=== PATIENT | male | born 1975 | race Caucasian/White ===

== ENCOUNTER 2017-03-04 17:57 | Inpatient (IN) | payer SELFPAY ==
--- NOTE | 2017-03-04 18:12 | CPEKG ---
Heart Rate: 60 RR Interval: 1000 QRSD Interval: 118 QT Interval: 500 QTC Interval: 500 P [place]: 12 QRS [place]: -29 T Wave [place]: -4 EKG Severity - ABNORMAL ECG - EKG Impression: COMPLETE AV BLOCK, A-RATE 131 EKG Impression: LEFT VENTRICULAR HYPERTROPHY EKG Impression: BORDERLINE T ABNORMALITIES, INFERIOR LEADS EKG Impression: BORDERLINE PROLONGED QT INTERVAL Electronically Signed By: Davon Lofton 04-Mar-2017 18:20:08
[2017-03-04] MEDS ORDERED: NS 500 ML IV ONE (18:15)
--- NOTE | 2017-03-04 18:19 | EDPHY ---
H & P Stated Complaint: c/o SOB -lower back/ kidney pain- states has not taken meds in 2 days Source: Patient Exam Limitations: No limitations - Personal History Current Tetanus Diphtheria and Acellular Pertussis (TDAP): Yes - Medical/Surgical History Hx Asthma: No Hx Chronic Respiratory Disease: No Hx Diabetes: No Hx Cardiac Disease: No Hx Renal Disease: No Hx Cirrhosis: No Other PMH: depression/nose - Family History Significant Family History: No pertinent family hx - Social History Smoking Status: Never smoked Alcohol Use: Sober Drug Use: None Time Seen by Provider: 03/04/17 18:08 HPI/ROS: CHIEF COMPLAINT: Low back pain, cough HISTORY OF PRESENT ILLNESS: The patient is a 41-year-old man who presents to the emergency department hypoxic and pale complaining of low back pain. He states that he has had a cough for the last 3 days. He has not had a fever. His cough is not productive. He states that he has had a cardiac workup in the past that was negative. He denies other past medical history other than anxiety. REVIEW OF SYSTEMS: Constitutional: denies: chills, fever, recent illness, recent injury EENTM: denies: blurred vision, double vision, nose congestion Respiratory: See HPI Cardiac: denies: chest pain, irregular heart rate, lightheadedness, palpitations Gastrointestinal/Abdominal: denies: abdominal pain, diarrhea, nausea, vomiting, blood streaked stools Genitourinary: denies: dysuria, frequency, hematuria, pain Musculoskeletal: denies: joint pain, muscle pain Skin: denies: lesions, rash, jaundice, bruising Neurological: denies: headache, numbness, paresthesia, tingling, dizziness, weakness Hematologic/Lymphatic: denies: blood clots, easy bleeding, easy bruising Immunologic/allergic: denies: HIV/AIDS, transplant EXAM: GENERAL: Well-appearing, well-nourished and in no acute distress. HEAD: Atraumatic, normocephalic. EYES: Pupils equal round and reactive to light, extraocular movements intact, sclera anicteric, conjunctiva are normal. ENT: TMs normal, nares patent, oropharynx clear without exudates. Moist mucous membranes. NECK: Normal range of motion, supple without lymphadenopathy or JVD. LUNGS: Right lower lobe rhonchi HEART: Bradycardic but regular ABDOMEN: Soft, nontender, normoactive bowel sounds. No guarding, no rebound. No masses appreciated. BACK: No CVA tenderness, no spinal tenderness, step-offs or deformities EXTREMITIES: Normal range of motion, no pitting or edema. No clubbing or cyanosis. NEUROLOGICAL: Cranial nerves II through XII grossly intact. Normal speech, normal gait. 5/5 strength, normal movement in all extremities, normal sensation PSYCH: Normal mood, normal affect. SKIN: Warm, dry, normal turgor, no visible rashes or lesions. (Davon Lofton) Constitutional: Initial Vital Signs Heart Rate 63 03/04/17 18:00 Respiratory Rate 18 03/04/17 18:00 Blood Pressure 131/73 H 03/04/17 18:00 O2 Sat (%) 92 03/04/17 18:00 O2 Delivery Mode Nasal Cannula O2 (L/minute) 2 Allergies/Adverse Reactions: No Known Allergies Allergy (Unverified 03/04/17 18:08) Home Medications: Medication Instructions Recorded ALPRAZolam [Xanax 1 MG (*)] 1 mg PO TID 03/04/17 ARIPiprazole [Aripiprazole] 5 mg PO HS 03/04/17 Amoxicillin/Clavulanate Pot 875 mg PO BID 03/04/17 [Augmentin 875 MG TAB (*)] Amphet Asp and D/Amphet [Adderall 10 mg PO DAILY 03/04/17 10 MG (*)] Dextroamphetamine/Amphetamine 60 mg PO DAILY 03/04/17 [Adderall 30 mg Tablet] oxyCODONE HCL [Oxycontin] 10 mg PO BID 03/04/17 oxyCODONE IR [Oxycodone Ir (*)] 30 mg PO Q4H PRN 03/04/17 traMADol [Ultram 50 mg (*)] 50 - 100 mg PO Q4 PRN 03/04/17 Medical Decision Making - Diagnostics EKG Interpretation: An EKG obtained and was read and documented in trace view. Please see trace view for full reading and report. Complete AV heart block, ventricular rate of 60 (Davon Lofton) ED Course/Re-evaluation: The patient's EKG shows complete heart block. Will place transcutaneous pacer pads on him and contact Cardiology. He is saturating 85% on room air. 93% on 4 L nasal cannula. 620 p.m. I discussed the case with Dr. Loya who is on-call for Cardiology. He recommends admission to the hospitalist service. Lab work pending, chest x- ray pending 6:29 p.m. I discussed the case with Dr. Alin Aranda who will admit and will discuss with Dr. Loya the necessity of Cardiology consult tonight. 6:34 p.m. I discussed the case with Javier Hdez who will accept the patient to the ER if in inpatient bed is not available by the time the ambulance arrives. 6:45 p.m. the patient's is here. We discussed his condition. The patient is feeling better and his back pain is resolved with oxygen. (Davon Lofton) I assumed care of this patient when he arrived in our emergency department. The patient has remained stable throughout my care. He has been in third- degree AV block. He has had an accelerated ventricular rhythm in the upper 50s to low 60s with frequent sinus beats as well. He was put in trauma room 2 which is warm. When I evaluated him he was mildly diaphoretic. I discussed the results of his chest x-ray with the admitting hospitalist Dr. Alin Aranda. The chest x-ray is concerning for CHF as well as pneumonia. Blood cultures were drawn. He was started on IV ceftriaxone and azithromycin for community-acquired pneumonia in the emergency department. He was seen by Cardiology, both Dr. Smooth Loya and Dr. Villegas. They want to observe the patient in the ICU overnight. At this time the decision to place a pacemaker will be discussed further in the morning. The patient's remaining emergency department course under my care has been uneventful. He has remained stable throughout my involvement. He was admitted to the ICU at 9:15 p.m.. ( Yeimi Sanchez) Differential Diagnosis: Partial list of the Differential diagnosis considered include but were not limited to; heart block, pneumonia, dissection and although unlikely based on the history and physical exam, I also considered sepsis, pneumothorax. (Davon Lofton) Critical Care Time: Critical care time spent by me, Dr. Lofton exclusive with this patient was 35 minutes, exclusive of the PA time exclusive of procedures. The organ system that was at risk was cardiovascular and I gave IV medication, pacer pad placement, consultation and admission and transfer to prevent worsening of the patient's condition (Davon Lofton) - Data Points Laboratory Results: Laboratory Results 03/04/17 18:27 03/04/17 18:15 Medications Given: Alprazolam (Xanax) 1 mg PO TID [facility] Stop: 08/31/17 21:59 Last Admin: 03/05/17 15:19 Dose: 1 mg Amphetamine/Dextroamphetamine (Adderall) 10 mg PO DAILY ALYSA Stop: 09/01/17 08:59 Last Admin: 03/05/17 09:06 Dose: Not Given Amphetamine/Dextroamphetamine (Adderall) 60 mg PO DAILY [facility] Stop: 09/01/17 08:59 Last Admin: 03/05/17 09:14 Dose: Not Given Enoxaparin Sodium (Lovenox) 80 mg SC BID [facility] Stop: 09/01/17 13:29 Last Admin: 03/05/17 13:54 Dose: 80 mg Dextrose/Sodium Chloride (D5w Ns) 1,000 mls @ 150 mls/hr IV CONT [facility] Stop: 08/31/17 20:59 Last Admin: 03/05/17 13:36 Dose: 1,000 mls Ketorolac Tromethamine (Toradol) 15 mg IVP Q6HRS [facility] Stop: 03/10/17 00:00 Last Admin: 03/05/17 17:08 Dose: Not Given Lorazepam (Ativan Injection) 1 - 2 mg IVP Q4HRS PRN PRN Reason: Anxiety, Unable to Take PO Stop: 09/01/17 16:42 Last Admin: 03/05/17 16:35 Dose: 2 mg Morphine Sulfate (Morphine) 1 - 2 mg IVP Q1HR PRN PRN Reason: Pain, Severe Unable to Take PO Stop: 03/15/17 13:15 Last Admin: 03/05/17 15:26 Dose: 2 mg Oxycodone HCl (Oxycontin) 10 mg PO BID [facility] Stop: 03/14/17 20:59 Last Admin: 03/05/17 09:15 Dose: Not Given Oxycodone HCl (Oxycodone Ir) 30 mg PO Q4H PRN PRN Reason: Pain, Severe Stop: 03/14/17 20:46 Last Admin: 03/05/17 12:22 Dose: 30 mg Polyethylene Glycol (Miralax) 17 gm PO DAILY ALYSA Stop: 08/31/17 20:59 Last Admin: 03/05/17 09:13 Dose: 17 gm Discontinued Medications Acetaminophen (Tylenol) 1,000 mg PO EDNOW ONE Stop: 03/04/17 22:00 Last Admin: 03/04/17 22:32 Dose: 1,000 mg Aripiprazole (Abilify) 5 mg PO HS ALYSA Stop: 08/31/17 20:59 Last Admin: 03/04/17 23:48 Dose: Not Given Sodium Chloride (Ns) 500 mls @ 0 mls/hr IV EDNOW ONE; Wide Open PRN Reason: Protocol Stop: 03/04/17 18:16 Last Admin: 03/04/17 18:27 Dose: 500 mls Azithromycin 500 mg/ Dextrose 255 mls @ 255 mls/hr IV DAILY ALYSA PRN Reason: Protocol Stop: 04/03/17 20:59 Last Admin: 03/05/17 01:21 Dose: Not Given Ceftriaxone Sodium/Dextrose (Rocephin 1 Gm (Premix)) 50 mls @ 100 mls/hr IV DAILY ALYSA PRN Reason: Protocol Stop: 04/03/17 20:59 Last Admin: 03/05/17 11:12 Dose: 50 mls Azithromycin 500 mg/ Dextrose 255 mls @ 255 mls/hr IV EDNOW ONE PRN Reason: Protocol Stop: 03/04/17 23:29 Last Admin: 03/04/17 22:30 Dose: 255 mls Ketorolac Tromethamine (Toradol) 30 mg IVP ONCE ONE Stop: 03/05/17 16:42 Last Admin: 03/05/17 16:54 Dose: 30 mg Lidocaine (Uroject Lidocaine 2% Jelly) 0 ml UR ONCE ONE Stop: 03/05/17 15:16 Last Admin: 03/05/17 15:20 Dose: 20 ml Magnesium Citrate (Magnesium Citrate) 300 ml PO ONCE ONE Stop: 03/05/17 09:29 Last Admin: 03/05/17 11:18 Dose: Not Given Potassium Chloride (Klor-Con) 10 - 40 meq PO ONCE ONE PRN Reason: Protocol Stop: 03/05/17 08:51 Last Admin: 03/05/17 09:12 Dose: 20 meq Departure - Departure Disposition: [facility] Acute Clinical Impression: Complete heart block by electrocardiogram, Pulmonary edema cardiac cause, Pneumonia Condition: Critical
[2017-03-04 18:31] LABS: % IMMATURE GRANULYOCYTES 0.5 % (0.0-1.1); ABSOLUTE IMMATURE GRANULOCYTES 0.06 10^3/uL (0.00-0.10); ADD DIFF? NO; ADD MORPH? NO; ADD SCAN? NO; ATYPICAL LYMPHOCYTE FLAG 0 (0-99); FRAGMENT RBC FLAG 0 (0-99); HEMOGLOBIN 13.2 g/dL (13.7-17.5); LEFT SHIFT FLG 10 (0-99); LIPEMIA HEMOLYSIS FLAG 90 (0-99); MEAN CELL HEMOGLOBIN CONCENTR. 34.7 g/dL (32.4-36.7); MEAN PLATELET VOLUME 9.8 fL (8.7-11.7); PLATELET CLUMPS FLAG 0 (0-99); PLATELET COUNT 207 10^3/uL (150-400); RED CELL DISTRIBUTION WIDTH 12.2 % (11.5-15.2)
[2017-03-04 18:38] LABS: ANION GAP 17 mEq/L (8-16); CALCIUM 8.5 mg/dL (8.5-10.4); CARBON DIOXIDE 27 mEq/l (22-31); CHLORIDE 94 mEq/L (97-110); CREATININE 1.3 mg/dL (0.7-1.3); GLOMERULAR FILTRATION RATE > 60; GLUCOSE 147 mg/dL (70-100); SODIUM 138 mEq/L (134-144)
[2017-03-04 18:46] LABS: INR 1.35 (0.83-1.16); PROTIME(PATIENT) 16.5 SEC (12.0-15.0)
[2017-03-04 18:47] LABS: APTT 35.8 SEC (23.0-38.0)
[2017-03-04 18:57] LABS: TROPONIN I 0.012 ng/mL (0.000-0.034)
[2017-03-04] MEDS ORDERED: ONDANSETRON DISINTEGRATING 4 MG TAB PO PRN (20:44)
[2017-03-04] MEDS ORDERED: ONDANSETRON 4 MG/2 ML VIAL IVP PRN (20:44)
[2017-03-04] MEDS ORDERED: traMADol 50 MG TAB PO PRN (20:47)
[2017-03-04] MEDS ORDERED: ARIPiprazole 5 MG TAB PO SCH (21:00)
[2017-03-04] MEDS ORDERED: AZITHROMYCIN IV 500 MG in D5W 250 ML IV SCH (21:00)
[2017-03-04] MEDS ORDERED: ACETAMINOPHEN 500 MG TAB ONE (21:10)
--- NOTE | 2017-03-04 21:23 | GHP ---
[f rep st] HISTORY AND PHYSICAL DATE OF ADMISSION: 03/04/2017 HISTORY OF PRESENT ILLNESS: The patient is a 41-year-old gentleman with a history of chronic back pa in, anxiety and chronic narcotic use. He presents to Urgent Care with low back pain today. He notes he has had fever and chills and shortness of breath. He has a cough. It is not productive of anyth ing. He has not had myalgias. He did get a flu shot this year. He has no family history of pacemak er. He has not passed out. He has not had lower extremity edema or orthopnea. REVIEW OF SYSTEMS: Complete 10-point review of systems conducted and negative except as noted in the HPI. PAST MEDICAL HISTORY: 1. Low back pain. 2. Continuous narcotic use. 3. Anxiety. ALLERGIES: No known drug allergies. HOME MEDICATIONS: Amoxicillin, alprazolam, Adderall, OxyContin, oxycodone, tramadol. SOCIAL HISTORY: No tobacco, no alcohol. Lives in [place]. 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 He has 1 child. FAMILY HISTORY: As in the HPI. PHYSICAL EXAMINATION: PRESENTING VITALS: Temp 36.1, blood pressure 147/79, pulse 61, breathing 18 t imes a minute, 91% on room air. GENERAL: Diaphoretic, looks uncomfortable. Otherwise no acute distress. HEENT: Sclerae anicteric. Oropharynx clear. Mucous membranes moist. NECK: Supple. No lymphadenopathy or JVD. LUNGS: Show crackles about mcc up the right lung fi eld with crackles in the left base. He has good air movement. No wheeze. HEART: S1, S2. Bradycar dic without murmur. ABDOMEN: Soft, nontender, nondistended. LOWER EXTREMITIES: No edema. Calves nontender. SKIN: Without rash. NEUROLOGIC: Exam is nonfocal. LABORATORY DATA: Sodium 138, potassium 4, chloride 94, bicarb 17, BUN 20, creatinine 1.3. There is no baseline. Glucose is 147, troponin is 0.012. Venous lactate is 1.5. INR is 1.35. D-dimer is el evated at 8.2, white count is 11.5 with a left shift. Hematocrit is 38. Platelets are 207,000. [facility] x-ray, interpreted by me, shows right lower lobe pneumonia with possibly some atelectasis versus i nfiltrate at the left base. EKG interpreted by me shows complete heart block with a ventricular rate of 60 with normal axis and intervals. This is a wavy baseline but really no ST or T-wave changes. Atrial rate is 131. I have discussed the case with Dr. Cullen Loya who has seen the patient in the emergency department as well as Dr. Davon Lofton. ASSESSMENT/PLAN: This is a 41-year-old gentleman who presents with community-acquired pneumonia as w ell as complete heart block with accelerated rate. 1. Complete heart block with accelerated rate. The patient is hemodynamically stable. He is alert with a good blood pressure and urine output and a normal creatinine. This is a bit of an unusual sit uation, although I have seen this before. I think it is reasonable to hold off on pacer, particularl y in light of his pneumonia as I will discuss below. Blood cultures have been drawn. 2. Community-acquired pneumonia. The patient's pneumonia was treated with ceftriaxone and azithromy quiana. Blood cultures have been drawn. Certainly these need to be negative before a pacemaker is plac ed. 3. Arrhythmia. This is critical care related, then it may resolve. Otherwise, he may need pacer in the coming time. He is seemingly stable as above. 4. Disposition. Step-down unit. 5. Prophylaxis. Pharmacologic prophylaxis is indicated given age and risk factors. However, given the need for possible invasive procedure, we will provide SCDs right now. 6. Continuous narcotic use. We will continue his narcotics as prescribed. 7. Constipation with bright red blood per rectum. It sounds like hemorrhoidal bleeding. We will fo llow his hematocrit and put him on twice daily MiraLAX. DISPOSITION: ICU. /[id number]/MODL
[2017-03-04 21:44] LABS: AMORPHOUS PRESENT /hpf (NONE-1+); COLOR AMBER; LEUKOCYTE ESTERASE,URINE NEGATIVE (NEGATIVE); MUCUS 2+ /lpf (NONE-1+); NITRITE,URINE NEGATIVE (NEGATIVE)
[2017-03-04] MEDS ORDERED: CEFTRIAXONE 1 GM/DEXTROSE/50 ML BAG IV ONE (21:51)
[2017-03-04] MEDS ORDERED: ACETAMINOPHEN 500 MG TAB PO ONE (21:59)
--- NOTE | 2017-03-04 22:08 | GCON ---
[f rep st] CONSULTATION HISTORY OF PRESENT ILLNESS: This is a 41-year-old man who came into the hospital because of abdomina l pain. He has had abdominal pain and lower abdominal pain on both sides and some hip pain, pain in his flank s on both sides, chills and fever for 3 days. He has felt worse and worse. He has lost his appetite . His says that he has lost weight, but he says he has not lost any weight. He has been consti pated, and he is having some bright red blood per rectum for the last 3 days. He is not bleeding exc ept when he is trying to move his bowels and he has significant constipation. He has never had these symptoms before. It hurts when he is peeing and he has copper color urine minda t smells very badly. That has been going on for 2 days. He has no history of renal stones. He has no vomiting whatsoever. He has no history of GI pathology, such as GI bleeding, ulcer disease , GERD, diverticular disease, diarrheal illnesses, irritable bowel, inflammatory bowel diseases. He has not had a bleeding diathesis where he has a history of easy bruising or bleeding. He has not had any hematemesis. No hemoptysis. He has no orthopnea, PND, dyspnea on exertion. He has no pleuritic chest pain. He has no chest tigh tness. Has no hot swollen joints or major rashes. No photophobia, stiff neck, sore throat. No dysphagia or hoarseness. No trauma to the head, neck, or chest. He takes his usual medications, and he has a longstanding sleep disorder, has to take a lot of Xanax. He is off Ambien, but he has had 20 years of trouble with that and works with a doctor for that. Intermittently in the past, he might have some heartburn but that has not been an issue right now. T he patient, of note, has not had lightheadedness, dizziness, near syncope, trouble with vision, troub le with hearing, or any cranial neuropathies. CARDIAC RISK FACTORS: Negative for hypertension, diabetes, hyperlipidemia, hyperuricemia, myocardial infarction, known coronary disease, smoking history, or family history of premature coronary artery disease. ALLERGIES: None. MEDICATIONS: Listed in the record. SURGICAL HISTORY: Also listed in the record. REVIEW OF SYSTEMS: A 12-point review of systems negative for anything except as noted above and in t he record. FAMILY HISTORY: He has a 59-year-old dad who had a myocardial infarction. No one in the family has had early coronary disease. No one has a history of unexplained sudden at a young age. SOCIAL HISTORY: He lives with his , who is healthy. They have 1 child together. He has 3 child michele in total. His work is going very well. 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 He exercises by weight training. He does not smoke. He does not drink significant amounts of alcohol and does not use other drugs. PHYSICAL EXAMINATION: VITAL SIGNS: His blood pressure is 135/70, his heart rate is 60. HEENT: Pup ils equal and reactive. Mucous membranes of the mouth moist. NECK: Supple. CARDIOVASCULAR: S1, S 2. Soft systolic murmur in the left sternal border. No diastolic murmur. No S3, S4. No rubs. PUL MONARY: Rhonchi. No rales, wheezing, or dullness. ABDOMEN: Soft, nontender, without masses. CVA: No tenderness. EXTREMITIES: No edema, inflammation, or ulceration. NEUROLOGIC: Cranial nerves 2 -12 grossly normal. Motor and sensory intact. LAB: White count is 11.47, hematocrit is 38, platelet count is 207. He has 13 monos, 3 eosinophils. Absolute neutrophil 7.79, absolute lymphocytes 2.05, absolute monos 1.50. INR was 1.35. D-dimer 6 .19. Sodium 138, potassium 4.0, chloride 94, CO2 27, anion gap 17, BUN 20, creatinine 1.3, glucose 1 47. Troponin 0.012. EKG shows complete heart block. He has a ventricular response rate that is 58 to 64. He has a junct ional rhythm. Chest x-ray shows a question of community-acquired pneumonia. ASSESSMENT AND PLAN: 1. Complete heart block. 2. Current illness. 3. Abnormal chest x-ray. 4. Dysuria and foul-smelling urine. 5. Gastrointestinal bleeding from the lower GI tract. We will watch him closely. It looks like he has a community-acquired pneumonia and we are going to t reat him for that, and we will treat with something that would also cover a bladder infection if he h as that. Cultures will be done before anything happens. I think he will do very well. He has a good junctional ventricular response to his complete heart bl ock, and I believe that might go away as he is better in the morning. We will have him checked by e EP service. He is going to be admitted to the ICU. He has patches on in case he needs pacing in the night. We can always put in temporary pacing if it is necessary, but there is no indic ation he needs that right now. There is nothing to suggest an acute coronary syndrome, congestive heart failure, etc. We will get a n echocardiographic study in the morning, and we will watch him very closely with you. Thank you very much for asking us to see him. I have talked to the hospitalist and the emergency [facility] staff about him. All the patient's family's questions have been answered, as well as his, and I sp ent over an hour and half with him. /[id number]/MODL
[2017-03-04] MEDS ORDERED: AZITHROMYCIN IV 500 MG in D5W 250 ML IV ONE (22:30)
[2017-03-04] MEDS: D5W NS 1,000 ML IV SCH (22:30)
[2017-03-04] MEDS: ALPRAZolam 1 MG TAB PO SCH (23:48)
[2017-03-04] MEDS: POLYETHYLENE GLYCOL 3350 17 GM PKT PO SCH (23:48)
--- NOTE | 2017-03-05 00:20 | HOSPPROG ---
Hospitalist Progress Note Assessment/Plan: Hospitalist Night Float Note Paged by RN reporting patient with increasing confusion and very diaphoretic. Patient admitted with complete heart block and PNA. Seen by Cardiology upon admission. recs to continue treatment for pna. prn pacer pads but at this time no emergent need for transvenous pacer. Arrived to bedside. patient somnolent and not able to answer questions falls asleep. he denied chest pain or shortness of breath to RN prior to this. Mother at bedside and updated. chart briefly reviewed. tele with prolonging QTc. d/c azithromycin. d/c abilify. Patient with significant weight loss for last several months but has acutely not been feeling well x 4 days. Unknown if he has taken any of his chronic opiates or psychiatric medications during this time. Patient was offerred an oxycodone but spit it out this PM before falling asleep. Plan: monitor closely on tele. d/c QT prolonging agents monitor electrolytes and replace. cardiology following. external pacer if needed at this time patient stable and asymptomatic HR 40s- 50s. IVF Objective: Vital Signs Temp Pulse Resp BP Pulse Ox 36.7 C 51 L 16 119/76 95 03/04/17 22:22 03/04/17 22:22 03/04/17 22:22 03/04/17 22:22 03/04/17 22:22 03/03/17 03/04/17 03/05/17 05:59 05:59 05:59 Intake Total 500 Balance 500 PT 16.5 SEC (12.0-15.0) H 03/04/17 18:15 INR 1.35 (0.83-1.16) H 03/04/17 18:15 ICD10 Worksheet Patient Problems: Problems Problem Status Onset Complete heart block by electrocardiogram Acute Pneumonia Acute Pulmonary edema cardiac cause Acute
[2017-03-05] MEDS: oxyCODONE IR 15 MG TAB PO PRN ×4 (01:22→20:39)
--- NOTE | 2017-03-05 04:09 | GCON ---
[f rep st] CONSULTATION The patient is here with right feeling tired. /[id number]/MODL
[2017-03-05 05:13] LABS: % IMMATURE GRANULYOCYTES 0.8 % (0.0-1.1); ABSOLUTE IMMATURE GRANULOCYTES 0.06 10^3/uL (0.00-0.10); ADD DIFF? NO; ADD MORPH? NO; ADD SCAN? NO; ATYPICAL LYMPHOCYTE FLAG 0 (0-99); FRAGMENT RBC FLAG 0 (0-99); HEMATOCRIT 30.8 % (40.0-51.0); HEMOGLOBIN 10.8 g/dL (13.7-17.5); LEFT SHIFT FLG 0 (0-99); LIPEMIA HEMOLYSIS FLAG 90 (0-99); MEAN CELL HEMOGLOBIN 34.3 pg (27.9-34.1); MEAN CELL HEMOGLOBIN CONCENTR. 35.1 g/dL (32.4-36.7); MEAN CELL VOLUME 97.8 fL (81.5-99.8); MEAN PLATELET VOLUME 10.5 fL (8.7-11.7); PLATELET CLUMPS FLAG 10 (0-99); PLATELET COUNT 156 10^3/uL (150-400); RED BLOOD CELL COUNT 3.15 10^6/uL (4.40-6.38); RED CELL DISTRIBUTION WIDTH 12.4 % (11.5-15.2)
[2017-03-05 05:25] LABS: INR 1.4 (0.83-1.16); PROTIME(PATIENT) 17.3 SEC (12.0-15.0)
[2017-03-05 05:34] LABS: CARBON DIOXIDE 31 mEq/l (22-31); CHLORIDE 100 mEq/L (97-110); GLOMERULAR FILTRATION RATE > 60; GLUCOSE 134 mg/dL (70-100); SODIUM 140 mEq/L (134-144)
[2017-03-05 07:00] LABS: ANION GAP 9 mEq/L (8-16); CALCIUM 8.1 mg/dL (8.5-10.4); POTASSIUM 3.6 mEq/L (3.5-5.2)
[2017-03-05 07:13] LABS: TROPONIN I < 0.012 ng/mL (0.000-0.034)
--- NOTE | 2017-03-05 07:13 | PDMN ---
Medical Necessity Medical necessity: Pt meets INPT criteria per MD and [facility] [place] [id number] Pneumonia, Community Acquired (with complete heart block with accelerated rate, increasing confusion and diaphoresis per H&P, progress note).
[2017-03-05] MEDS ORDERED: PROTOCOL POTASSIUM 1 DOSE MISC PRN (08:41)
[2017-03-05] MEDS ORDERED: PROTOCOL MAGNESIUM 1 DOSE IV PRN (08:47)
[2017-03-05] MEDS ORDERED: POTASSIUM CL 10 MEQ TAB PO ONE ×3 (08:50→20:27)
[2017-03-05] MEDS: ADDERALL 10 MG TAB PO SCH (09:06)
[2017-03-05] MEDS: POLYETHYLENE GLYCOL 3350 17 GM PKT PO SCH (09:13)
[2017-03-05] MEDS: ADDERALL 20 MG TAB PO SCH (09:14)
--- NOTE | 2017-03-05 09:23 | CPEKG ---
Heart Rate: 55 RR Interval: 1091 P-R Interval: 256 QRSD Interval: 132 QT Interval: 504 QTC Interval: 483 P [place]: 23 QRS [place]: -8 T Wave [place]: 9 EKG Severity - ABNORMAL ECG - EKG Impression: SINUS RHYTHM EKG Impression: FIRST DEGREE AV BLOCK EKG Impression: PROBABLE LEFT ATRIAL ABNORMALITY EKG Impression: RIGHT BUNDLE BRANCH BLOCK EKG Impression: LEFT VENTRICULAR HYPERTROPHY Electronically Signed By: Kira Pineda 05-Mar-2017 11:12:48
[2017-03-05] MEDS ORDERED: LACTULOSE 20 GM/30 ML UDCUP PO PRN (09:27)
[2017-03-05] MEDS ORDERED: MAGNESIUM HYDROXIDE 30 ML UDCUP PO PRN (09:27)
[2017-03-05] MEDS ORDERED: BISACODYL 10 MG SUPP PR PRN (09:27)
[2017-03-05] MEDS ORDERED: MAGNESIUM CITRATE 300 ML BOTTLE PO ONE (09:28)
[2017-03-05] MEDS: ALPRAZolam 1 MG TAB PO SCH ×3 (09:38→21:30)
--- NOTE | 2017-03-05 10:18 | PDCARPN ---
Cardiology Progress Note Chief Complaint: Bilateral flank pains and malaise Assessment/Plan: Assessment: Patient is a 41 y/o male with unremarkable past cardiovascular history (no CAD, HTN, HLP, or DM), but a history of bipolar and schizophrenia (as per mother and ), who presented to [facility] via private transport with signs and symptoms of infection. Work up in the ER with complete heart block noted (maintaining mental status, blood pressure, and heart rates of >50 bpm). Chest x-ray with consolidation and infiltrates, and concerns about pneumonia. Blood cultures were obtained, and antibiotics were started. Inability to void was addressed with canela. Placement of the canela was traumatic and consistent with prostate pathology (NOS). Further history obtained on the floor with weight loss (about 20 pounds - patient denies, but reports). Abrupt cessation of some psych medications. Abdominal pains are more pronounced today. No productive cough. Fevers had been noted, but patient denies any as of today. ECG and telemetry with episodic third degree AVB (initial ECG with third degree AVB, but today's ECG with sinus rhythm and first degree AVB). While speaking with the patient today, both rhythms were noted on telemetry. Elevation in the D-dimer was noted , but no CT rule out PE given thoughts that all might be secondary to "pneumonia ". Troponin has not been noted to be elevated (three samples drawn). Flu swab was negative. Plan: From a cardiovascular standpoint, would refrain from further invasive action with the third degree AVB currently noted given stable haemodynamics and appropriate responses. Would address the elevated d-dimer with CT protocol as well as the abdominal pains noted with CT of abdomen. Echocardiogram is pending (there appeared to be some enlargement of the cardiac silhouette). Care with withdrawal symptoms (uncertain how long the patient has stopped therapy, and what therapies have actually been stopped). Hospitalist team was present during the exam/discussion this morning. We will continue to follow this patient closely. Echocardiogram is pending - will add addendum at completion of this study. Subjective: Mild/moderate abdominal/flank pains. Reviewed/Discussed With: family, hospitalist, multidisciplinary team Objective: Vital Signs (8 Hrs) Pulse Resp BP Pulse Ox 03/05/17 06:00 51 L 15 126/67 H 95 03/05/17 04:00 51 L 15 121/62 H 97 Intake/Output (24 Hrs) 03/04/17 03/05/17 03/06/17 05:59 05:59 05:59 Intake Total 1738 Output Total 550 Balance 1738 -550 Intake: IV Intake (ml) 1238 IV Infused (ml) 500 Output: Urine (ml) 550 Catheter 550 Other: Weight 82.7 kg Output Comment Catheter straight cath Result Diagrams: 03/05/17 04:50 03/05/17 04:50 Cardiac Labs: Cardiac Lab Results (72 Hrs) 03/05/17 03/04/17 04:50 23:00 Troponin I < 0.012 < 0.012 EKG: both sinus rhythm with first degree block and third degree AVB noted. Telemetry: both sinus rhythm with first degree block and third degree AVB noted. Echocardiogram: pending - Physical Exam Constitutional: WDWN, no apparent distress, general pain Eyes: PERRL, EOMI Ears, Nose, Mouth, Throat: moist mucous membranes Cardiovascular: regular rate and rhythm, no rubs, jugular vein distention, pulses symmetric bilat Peripheral Pulses: 2+: dorsalis-pedis (R), dorsalis-pedis (L) Respiratory: clear to auscultate bilat, reduced air movement (in the bases) Gastrointestinal: tenderness Skin: no edema Musculoskeletal: no muscular tenderness (right thigh pains were noted yesterday) Neurologic: AAOx3, CN II-XII grossly intact Psychiatric: cooperative, interactive, following commands ICD10 Worksheet Patient Problems: Problems Problem Status Onset Complete heart block by electrocardiogram Acute Pneumonia Acute Pulmonary edema cardiac cause Acute
[2017-03-05] MEDS ORDERED: IOPAMIDOL (ISOVUE 370) 100 ML BTL IV ONE (12:01)
[2017-03-05] MEDS: D5W NS 1,000 ML IV SCH (13:36)
[2017-03-05] MEDS: ENOXAPARIN 80 MG/0.8 ML SYR SC SCH ×2 (13:54→20:41)
--- NOTE | 2017-03-05 14:12 | GCON ---
[f rep st] CONSULTATION PULMONARY CRITICAL CARE CONSULTATION DATE OF CONSULTATION: 03/05/2017 REASON FOR CONSULTATION: Chest pain, pulmonary embolism. HISTORY: The patient is a 41-year-old gentleman with a history of anxiety, chronic pain, and ADD. He presented to the emergency department yesterday with right-sided chest and back pain. He was found to be in heart block on admission. He was hemodynamically stable. He was seen by Cardiology. An acute pacer was not recommended as his rate was not slow and blood pressure was stable. Chest x-ray showed a possible infiltrate versus congestive heart failure. He was felt to probably have a community-acquired pneumonia and was placed on antibiotics. A D-dimer was found to be elevated. He was sent for CT angiogram of the chest. This shows bilateral pulmonary embolic disease, at least moderate volume. There is no saddle embolism. There is a fairly large right lower lobe infiltrate/consolidation. Pneumonia cannot be excluded. However, a pulmonary infarct or blood is possible as well. Atelectasis may be contributing. There are some small bilateral pulmonary effusions, right greater than left. He has been started on anticoagulation. The patient was admitted to the intensive care unit. His main complaint is that of pain. This increases with breathing and with certain movement. DRUG ALLERGIES: No known drug allergies. ALLERGIES: None known PAST MEDICAL HISTORY: Remarkable for chronic pain related to his back and chronic narcotic use. Anxiety. ADD also appears to be a diagnosis. SOCIAL HISTORY: He is . 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 He has children. Tobacco and alcohol are denied. He apparently lifts weights. REVIEW OF SYSTEMS: A 10-point review of systems is negative except as outlined above, and for the fact that he has had some blood in his stool. FAMILY HISTORY: Heart disease in his father. PHYSICAL EXAMINATION: GENERAL: Reveals a gentleman who appears moderately uncomfortable, especially with moving. He is complaining of pain in his right side and chest. VITAL SIGNS: Blood pressure is 120/70, heart rate 57, with a Wenckebach type rhythm. Respiratory rate is 24. He is on 5 L of oxygen with saturations of 95%. He is afebrile. NECK: Unremarkable for lymphadenopathy or thyromegaly. The jugular venous distention is difficult to estimate. There is no lymphadenopathy or thyromegaly. CHEST: Reveals decreased breath sounds bilaterally, especially on the right side. He is splinting. Rales are present with some consolidative changes. There are no wheezes, no rhonchi. No pleural rub was heard. HEART: Bradycardic. There are no gallops. P2 may be increased. There is a soft systolic murmur. ABDOMEN: Distended. Bowel sounds are present, but diminished. There is some abdominal tenderness, but this is difficult to sort out from his chest tenderness, especially on the right. There is no Caceres catheter in place. He did require straight catheterization to be able to pass urine. This was uncomfortable for him. EXTREMITIES: Unremarkable for edema, cords, or obvious tenderness. The there was no obvious size discrepancy in the calf. NEUROLOGIC: Appears to be intact. He appears somewhat anxious, perhaps a little bit confused; however, this may be secondary to acute illness and medications. IMAGING STUDIES: CT angiogram of the chest is as outlined above. Positive for pulmonary embolic disease, effusions, infiltrate on the right and/or atelectasis. LABORATORY DATA: White blood cell count 7400, hematocrit 30.8, down from 38. Platelets are 156,000. PT was 16 on admission with a PTT of 35.8. D-dimer was elevated at 8.1. Venous lactate is 1.5. The basic metabolic panel is within normal limits. Troponins are negative. Urinalysis showed a few white cells and red cells. Leukocyte esterase was negative. Influenza A/B was negative. ASSESSMENT: 1. Bilateral pulmonary embolic disease, at least moderate volume. This was identified by CT angiogram. He has been started on full-dose anticoagulation. He is hemodynamically stable on oxygen. 2. Cardiac arrhythmias. He presented with complete heart block, now is in Wenckebach. This may be secondary to right-sided strain. A cardiac echocardiogram has been done, but results are pending at this time. I would not be surprised to see elevated right-sided pressures. 3. Pulmonary infiltrates/atelectasis. The infiltrate on the right is fairly impressive. The left looks more like simple atelectasis. Pneumonia cannot be excluded. He is being treated with antibiotics for this. These will be continued for now. Chest x-ray will be followed. Blood cultures have been obtained. He is not bringing up any sputum. 4. Abdominal distention: This may be secondary to abdominal manifestations of pulmonary embolic disease. CT scan of the abdomen showed no acute pathology. There was evidence of some constipation. 5. Metabolic: No issues identified. 6. Anemia: He is mildly anemic, without evidence of blood loss. His drop from admission is likely dilutional. Hemoglobin and hematocrit will be followed. PLAN AND RECOMMENDATIONS: Please see the comments above. The patient will be kept in the intensive care unit and monitored closely. Full-dose anticoagulation with subcutaneous Lovenox will be continued. An ultrasound of the lower extremities will be obtained. Cardiac echocardiogram results will be awaited. He will be kept on the monitor. Cardiology is seeing the patient. We will continue to follow the patient regarding his atrial arrhythmias and heart block. Antibiotics will be continued. A sputum culture will be obtained if possible. Laboratory will be followed. Further plans and recommendations will be made based on his progress over the next 12-24 hours. /[id number]/MODL and [id number], 03/05/17 [id number]
--- NOTE | 2017-03-05 14:20 | ASMTCASEMG ---
Living Arrangements What is your living Answers: With Spouse arrangement? Who do you live with? Type Of Residence What kind of residence do Answers: House you live in? Discharge Plan Comments Coordination Status Comments Notes: Patient is a 41yo male who was admitted for community acquired pneumonia as well as a complete heart block with accelerated rate. No therapies ordered. Patient will most likely need cardiac rehab and d/c independently. CM available for d/c needs that arise. Date Signed: 03/05/2017 02:20 PM Electronically Signed By:Elda Padilla LCSW
[2017-03-05] MEDS ORDERED: LIDOCAINE 2% JELLY 20 ML (UROJECT) UR ONE (15:15)
--- NOTE | 2017-03-05 16:26 | ECHO ---
[email or web address] [address] [address] Main: [phone] Fax: Transthoracic Echocardiogram Name: FEDERICA CALDERON MR#: [id number] Study Date: 03/05/2017 Study Time: 10:22 AM Date of : 1975 Age: 41 year(s) Height: 180.3 cm (71 in.) Weight: 79.38 kg (175 lb.) BSA: 1.99 m2 Gender: Male Examination: Echo Indication: Complete heart block Image Quality: Contrast: Requested by: Liu Aranda BP: 126 mmHg/65 mmHg Heart Rate: Rhythm: Indication: Complete heart block Procedure Staff Instrumentation Technologist: Tanja Gordon Reading Physician: Rajesh Donaldson Requesting Provider: Conclusions: Normal size left ventricle. No LV hypertrophy. Normal global systolic LV function. EF is 64 %. No regional wall motion abnormality. Upper normal size right ventricle. The right atrium is mildly dilated. Trivial mitral valve regurgitation. The aortic valve is normal in appearance and function. Mild tricuspid regurgitation is present. Trivial pulmonic valve regurgitation. Trivial anterior pericardial effusion. Measurements: Chambers Valvular Assessment AV/MV Valvular Assessment TV/PV Normal Normal Normal Name Value Range Name Value Range Name Value Range Ao Wanda (MM): 3.8 cm (2.2 cm-3.7 AV meanP mmHg ( - ) TR Vmax: 2.62 mm/s ( - ) cm) MV E Vmax: 1.12 m/s ( - ) TR PGmax: 27 mmHg ( - ) IVSd (2D): 1.0 cm (0.6 cm-1.1 MV A Vmax: 0.73 m/s ( - ) syst. PAP: 32 mmHg ( - ) cm) MV E/A: 1.53 ( - ) LVDd (2D): 5.3 cm (4.2 cm-5.9 cm) LVDs (2D): 2.7 cm (2.1 cm-4 cm) LVPWd (2D): 1.0 cm (0.6 cm-1 cm) LVEF (MOD4): 64 % (>=55 %) Continued Measurements: Patient: FEDERICA CALDERON Study Date: 03/05/2017 Page 1 of 2 10:22 AM Chambers Valvular Assessment AV/MV Valvular Assessment TV/PV Name Value Name Value Name Value LADs: 3.5 cm MV E/E' Septal: 14.90 CVP (est.): 5 mmHg LADs Lon.1 cm MV E/E' Lateral: 9.30 LA Area: 19.1 cm2 Additional Vessels Name Value Ao Ascendin.1 cm Findings: Left Ventricle: Normal size left ventricle. No LV hypertrophy. Normal global systolic LV function. EF is 64 %. No regional wall motion abnormality. Normal diastolic LV function. Right Ventricle: Upper normal size right ventricle. There is a moderator band noted in the right ventricle. Left Atrium: The left atrium is normal in size. Right Atrium: The right atrium is mildly dilated. Mitral Valve: The mitral valve is normal in appearance and function. Trivial mitral valve regurgitation. Aortic Valve: The aortic valve is normal in appearance and function. Tricuspid Valve: The tricuspid valve is normal in appearance and function. Mild tricuspid regurgitation is present. Pulmonic Valve: The pulmonic valve is normal in appearance and function. Trivial pulmonic valve regurgitation. Aorta: The aorta is normal. Pericardium: Trivial anterior pericardial effusion. (No Signature Object) Patient: FEDERICA CALDERON Study Date: 03/05/2017 Page 2 of 2 10:22 AM [id number]
[2017-03-05] MEDS ORDERED: LORazepam 2 MG/ML INJ ONE (16:34)
[2017-03-05] MEDS: LORazepam 2 MG/ML INJ IVP PRN (16:35)
[2017-03-05] MEDS ORDERED: KETOROLAC 30 MG/1 ML SDV IVP ONE (16:41)
[2017-03-05] MEDS: KETOROLAC 15 MG/1 ML SDV IVP SCH ×3 (16:58→17:08)
[2017-03-05] MEDS ORDERED: KETOROLAC 15 MG/1 ML SDV IVP SCH (18:00)
--- NOTE | 2017-03-05 18:01 | HOSPPROG ---
Hospitalist Progress Note Assessment/Plan: # Acute pulmonary embolism - CTA chest (personally reviewed and interpreted) moderate to large bilateral PE with suspected Right sided infarct - start lovenox BID - TTE pending - cont supplemental O2 # AHRF - 2/2 above - cont antibiotics currently as unclear if infiltrates are purely infarct or potential overlying infection oxygen saturations 94% on 4L - cont empiric abx - cont lvoenox - cont supportive care # Abdominal pain with reported weight loss - CT abd without obvious cause - tx underlying wd sx - cont aggressive bowel regimen # Acute urinary retention - suspect may be related withwd from Abilify and narcotics - cont low dose oxycodone - straight cath this am # Bipolar d/o, ADD and schizophrenia - pt self dc abilify prior to presentation -cont adderal - holding abilify - pt will need active med titration by outpatient psych providers # VIDHYA creatinine 1.3 at presentation - resolved with IVF overnight # Acute metabolic acidosis suspect 2/2 dehydration - resolved with IVF # proph - lovenox # diet- regular # dispo- > 2MN as acutely ill requiring critical care support I have discussed the case with Dr. Murillo - we will continue antibiotics and aggressive pulmonary care Subjective: alot of flank apin Objective: Vital Signs Temp Pulse Resp BP Pulse Ox 36.7 C 57 L 14 94/46 L 94 03/04/17 22:22 03/05/17 16:00 03/05/17 16:00 03/05/17 16:00 03/05/17 16:00 Laboratory Results 03/05/17 04:50 03/05/17 04:50 03/04/17 03/05/17 03/06/17 05:59 05:59 05:59 Intake Total 1738 Output Total 550 Balance 1738 -550 PT 17.3 SEC (12.0-15.0) H 03/05/17 04:50 INR 1.40 (0.83-1.16) H 03/05/17 04:50 - Physical Exam Constitutional: chronically ill appearing Eyes: anicteric sclera Ears, Nose, Mouth, Throat: moist mucous membranes Cardiovascular: regular rate and rhythym Respiratory: no respiratory distress, reduced air movement, inspiratory crackles Gastrointestinal: normoactive bowel sounds Genitourinary: no bladder fullness Skin: warm Musculoskeletal: No asymmetric calves Neurologic: AAOx3 Psychiatric: interacting appropriately, depressed, flat affect, other Lymph, Heme, Immunologic: no cervical LAD ICD10 Worksheet Patient Problems: Problems Problem Status Onset Complete heart block by electrocardiogram Acute Pneumonia Acute Pulmonary edema cardiac cause Acute
[2017-03-05 18:47] LABS: POTASSIUM 3.3 mEq/L (3.5-5.2)
[2017-03-05] MEDS ORDERED: POTASSIUM CL 20 MEQ TAB ONE (20:32)
[2017-03-05] MEDS: SENNOSIDES/DOCUSATE SODIUM TAB PO SCH (20:40)
[2017-03-06] MEDS: KETOROLAC 15 MG/1 ML SDV IVP SCH ×4 (00:16→17:57)
[2017-03-06] MEDS: oxyCODONE IR 15 MG TAB PO PRN ×3 (03:46→22:47)
[2017-03-06 06:09] LABS: HEMOGLOBIN 10.8 g/dL (13.7-17.5); MEAN CELL HEMOGLOBIN 34.4 pg (27.9-34.1); MEAN CELL HEMOGLOBIN CONCENTR. 34.8 g/dL (32.4-36.7); MEAN CELL VOLUME 98.7 fL (81.5-99.8); RED BLOOD CELL COUNT 3.14 10^6/uL (4.40-6.38); RED CELL DISTRIBUTION WIDTH 12.5 % (11.5-15.2)
[2017-03-06 06:22] LABS: ANION GAP 12 mEq/L (8-16); CALCIUM 7.8 mg/dL (8.5-10.4); CARBON DIOXIDE 24 mEq/l (22-31); CHLORIDE 106 mEq/L (97-110); CREATININE 0.8 mg/dL (0.7-1.3); GLOMERULAR FILTRATION RATE > 60; GLUCOSE 226 mg/dL (70-100); MAGNESIUM 1.9 mg/dL (1.6-2.3); POTASSIUM 3.8 mEq/L (3.5-5.2); SODIUM 142 mEq/L (134-144)
[2017-03-06 08:08] LABS: ALBUMIN 2.6 g/dL (3.5-5.0); BILIRUBIN,TOTAL 0.6 mg/dL (0.1-1.4); BILIRUBIN-CONJUGATED 0.5 mg/dL (0.0-0.5); BILIRUBIN-UNCONJUGATED 0.1 mg/dL (0.0-1.1); TOTAL PROTEIN 5.2 g/dL (6.3-8.2)
[2017-03-06] MEDS: ADDERALL 20 MG TAB PO SCH (08:44)
[2017-03-06] MEDS: ENOXAPARIN 80 MG/0.8 ML SYR SC SCH ×2 (08:44→20:03)
[2017-03-06] MEDS: ADDERALL 10 MG TAB PO SCH (08:44)
[2017-03-06] MEDS: SENNOSIDES/DOCUSATE SODIUM TAB PO SCH ×2 (08:45→20:03)
[2017-03-06] MEDS: ALPRAZolam 1 MG TAB PO SCH (08:45)
[2017-03-06] MEDS: POLYETHYLENE GLYCOL 3350 17 GM PKT PO SCH (08:45)
--- NOTE | 2017-03-06 10:18 | PDCARPN ---
Cardiology Progress Note Chief Complaint: Patient states that he is feeling better today. Patient continues to have some degree of somnolence. Assessment/Plan: Assessment: 03-06-17 Moderate to large bilateral pulmonary emboli were noted on CT of chest. Ongoing anticoagulation with full strength Lovenox. Telemetry continues to reveal periodic third degree AVB. Heart rate, oxygen sats, blood pressure, and mental status continue to be normal, but I do question if the mental status ( somnolence) that the patient has manifested is secondary to this arrhythmia. Heart rates are generally >50 bpm (with third degree AVB), and blood pressures are normal (114/56 mm Hg). As the thrombus burden diminishes, would monitor heart rhythm closely. The patient may require PPM implantation, but would ensure that no active infection noted. 03-05-17 Patient is a 41 y/o male with unremarkable past cardiovascular history (no CAD, HTN, HLP, or DM), but a history of bipolar and schizophrenia (as per mother and ), who presented to [facility] via private transport with signs and symptoms of infection. Work up in the ER with complete heart block noted (maintaining mental status, blood pressure, and heart rates of >50 bpm). Chest x-ray with consolidation and infiltrates, and concerns about pneumonia. Blood cultures were obtained, and antibiotics were started. Inability to void was addressed with canela. Placement of the canela was traumatic and consistent with prostate pathology (NOS). Further history obtained on the floor with weight loss (about 20 pounds - patient denies, but reports). Abrupt cessation of some psych medications. Abdominal pains are more pronounced today. No productive cough. Fevers had been noted, but patient denies any as of today. ECG and telemetry with episodic third degree AVB (initial ECG with third degree AVB, but today's ECG with sinus rhythm and first degree AVB). While speaking with the patient today, both rhythms were noted on telemetry. Elevation in the D-dimer was noted , but no CT rule out PE given thoughts that all might be secondary to "pneumonia ". Troponin has not been noted to be elevated (three samples drawn). Flu swab was negative. Plan: (1) Ongoing anticoagulation for noted pulmonary emboli (2) Would continue Lovenox as at present (3) Antibiotic therapy should continue - difficult to tell if there was concomitant pneumonia given the imaging findings that have been noted in the setting of moderate to large PE (4) Close monitor of the tele/ECG findings. If third degree heart block continues to be noted, PPM is indicated (5) Uncertain etiology for the patient's affect (I don't know if this is baseline for the patient, or new - would be good to further discuss with family) Subjective: No cardiovascular complaints Reviewed/Discussed With: hospitalist, multidisciplinary team Objective: Vital Signs (8 Hrs) Temp Pulse Resp BP Pulse Ox 03/06/17 08:00 36.7 C 46 L 29 H 114/56 L 100 03/06/17 06:00 57 L 25 H 117/65 95 03/06/17 03:48 37.2 C 50 L 18 102/52 L 99 Intake/Output (24 Hrs) 03/05/17 03/06/17 03/07/17 05:59 05:59 05:59 Intake Total 1738 3909 Output Total 1330 Balance 1738 2579 Intake: Oral (ml) 500 IV Intake (ml) 1238 1675 IV Infused (ml) 500 1734 D5w Ns 1,000 ml @ 150 mls 1634 /hr IV CONT ALYSA Rx#: [id number] cefTRIAXone 1 GM/DEXTROSE 100 50 ml @ 100 mls/hr IV DAILY ALYSA Rx#:[id number] Output: Urine (ml) 1330 Catheter 1330 Other: Weight 82.7 kg Output Comment Catheter straight cath Bladder Scan Volume (ml) Catheter 450 Result Diagrams: 03/06/17 05:40 03/06/17 05:40 Cardiac Labs: Cardiac Lab Results (72 Hrs) 03/05/17 03/04/17 04:50 23:00 Troponin I < 0.012 < 0.012 EKG: sinus rhythm, first degree AVB, third degree AVB (intermittently) Telemetry: third degree AVB noted today during assessment Echocardiogram: normal LVEF. borderline dilation of the RV and possibly RA was noted. normal RVSP was appreciated. - Physical Exam Constitutional: WDWN, healthy appearing, no apparent distress Eyes: PERRL, EOMI Ears, Nose, Mouth, Throat: moist mucous membranes Cardiovascular: regular rate and rhythm, systolic murmur, pulses symmetric bilat , No jugular vein distention Peripheral Pulses: 2+: dorsalis-pedis (R), dorsalis-pedis (L) Respiratory: reduced air movement, No expiratory wheeze, No inspiratory crackles Gastrointestinal: normoactive bowel sounds Skin: no rashes, no edema Musculoskeletal: no muscular tenderness Neurologic: AAOx3, CN II-XII grossly intact Psychiatric: cooperative, interactive, following commands, flat affect ICD10 Worksheet Patient Problems: Problems Problem Status Onset Complete heart block by electrocardiogram Acute Pneumonia Acute Pulmonary edema cardiac cause Acute
[2017-03-06] MEDS: LORazepam 2 MG/ML INJ IVP PRN ×2 (10:24→22:46)
[2017-03-06] MEDS ORDERED: ALTEPLASE 2 MG VIAL IVP PRN (12:45)
[2017-03-06] MEDS: ACETAMINOPHEN 325 MG TAB PO PRN (12:47)
--- NOTE | 2017-03-06 13:53 | PDINTPN ---
Drive Worker Progress Note Assessment/Plan: Assessment: Bilateral pulmonary embolic disease, if at least moderate volume. On full-dose enoxaparin. Improving. No evidence of DVT. Right lower lobe infiltrate: Possible pneumonia. Cannot exclude this although other etiologies such as a pulmonary infarct or localized blood may be present. Would continue antibiotics. Cardiac arrhythmias: Status post heart block. Now alternating between sinus with bradycardia, Mobitz type 1, etc. Chest pain: Pleuritic on right. Improving. Psychiatric: History of ADD, possibly bipolar. Also has chronic pain, chronic narcotic and benzodiazepine. Probably abuses both of these. May have a component of withdrawal but being adequately covered with both. Metabolic: No issues currently identified. Anemia. Hematocrit 31, down from 38. No active bleeding identified. Dilutional suspected, possible illness related as well. Plan: Continue present care in the intensive care unit. Continue full-dose anticoagulation. Consider switching to an oral anticoagulant tomorrow such as Eliquis. Continue antibiotics and bronchopulmonary therapies. Continue pain control with opiates/nonsteroidals. Decrease as tolerated. Continue Xanax p.r.n.. Follow laboratory. Repeat chest x-ray in the a.m.. 40 min of critical care time spent directly with the patient. Discussed with the patient's and family, hospitalist, nursing, and the ICU multi disciplinary team. Subjective: Feels better overall. Less short of breath, less pain. Denies leg pain. Some abdominal distension. Responses quite terse Objective: Vital Signs Temp Pulse Resp BP Pulse Ox 38.6 C H 60 24 H 143/69 H 98 03/06/17 12:00 03/06/17 12:00 03/06/17 12:00 03/06/17 12:00 03/06/17 12:00 Laboratory Results 03/06/17 05:40 03/06/17 05:40 03/05/17 03/06/17 03/07/17 05:59 05:59 05:59 Intake Total 1738 3909 Output Total 1330 Balance 1738 2579 PT 17.3 SEC (12.0-15.0) H 03/05/17 04:50 INR 1.40 (0.83-1.16) H 03/05/17 04:50 Laboratory Tests 03/06/17 03/06/17 05:40 05:40 Calcium 7.8 L Magnesium 1.9 AST 83 H ALT 55 Albumin 2.6 L Physical Exam - Physical Exam General Appearance: no apparent distress, other (Somnolent, arouses, responds appropriately generally with just yes or no) EENT: PERRL/EOMI, other (Nasal cannula at 2 L) Neck: normal inspection (No JVD) Respiratory: lungs clear (Anteriorly), decreased breath sounds (At bases), rales (Right base greater than left with consolidative changes on the right, E to A) Cardiac/Chest: regular rate, rhythm, bradycardia Abdomen: non-tender, distended, No normal bowel sounds (Present, decreased) Male Genitalia: other (Caceres catheter in place, adequate urine output.) Skin: normal color, warm/dry, diaphoresis Extremities: No pedal edema, No swelling Neuro/Psych: no motor/sensory deficits, No cognition abnormalities ICD10 Worksheet Patient Problems: Problems Problem Status Onset Complete heart block by electrocardiogram Acute Pulmonary edema cardiac cause Acute Pneumonia Acute
[2017-03-06] MEDS ORDERED: POTASSIUM CL 10 MEQ TAB PO ONE ×2 (14:26→20:57)
[2017-03-06] MEDS ORDERED: ALPRAZolam 1 MG TAB PO PRN (14:38)
--- NOTE | 2017-03-06 14:38 | HOSPPROG ---
Hospitalist Progress Note Assessment/Plan: # Acute pulmonary embolism - CTA chest (personally reviewed and interpreted) moderate to large bilateral PE with suspected Right sided infarct TTE (reviewed) no evidence of right heart strain - unclear if cause of PE related to - start lovenox BID - cont supplemental O2 # AHRF - 2/2 above - cont antibiotics currently as unclear if dense right lower lobe infiltrate is purely infarct or potential overlying infection oxygen saturations 94% on 4L - cont empiric abx - cont Lovenox - cont supportive care # Abdominal pain with reported weight loss - CT abd without obvious cause - tx underlying wd sx - cont aggressive bowel regimen # Acute urinary retention - suspect may be related withdrawal from Abilify and narcotics - cont low dose narcotics - acnela placed overnight - cont prn benzos # Acute encephalopathy thought 2/2 withdrawal syndrome - it is unclear to us if he is only withdrawing from Abilify or also from narcotics and benzodiazepines - continuing low-dose narcotics and benzos as outlined above - continue supportive care # Bipolar d/o, ADD and schizophrenia - pt self dc abilify prior to presentation - cont adderal - holding abilify - pt will need active med titration by outpatient psych providers # VIDHYA creatinine 1.3 -> 0.8 - resolved with IVF overnight # Acute metabolic acidosis suspect 2/2 dehydration - resolved with IVF # proph - lovenox # diet- regular # dispo- > 2MN as acutely ill requiring critical care support I have discussed the case with Dr. Murillo - we will continue antibiotics and aggressive pulmonary care patient remains acutely quite ill Subjective: pain improved today Objective: Vital Signs Temp Pulse Resp BP Pulse Ox 38.6 C H 49 L 22 H 116/50 L 100 03/06/17 12:00 03/06/17 14:00 03/06/17 14:00 03/06/17 14:00 03/06/17 14:00 Laboratory Results 03/06/17 05:40 03/06/17 05:40 03/05/17 03/06/17 03/07/17 05:59 05:59 05:59 Intake Total 1738 3909 Output Total 1330 Balance 1738 2579 PT 17.3 SEC (12.0-15.0) H 03/05/17 04:50 INR 1.40 (0.83-1.16) H 03/05/17 04:50 - Physical Exam Constitutional: chronically ill appearing Eyes: anicteric sclera Ears, Nose, Mouth, Throat: moist mucous membranes Cardiovascular: regular rate and rhythym Respiratory: no respiratory distress, inspiratory crackles Gastrointestinal: normoactive bowel sounds Genitourinary: no bladder fullness Skin: warm Musculoskeletal: No asymmetric calves Neurologic: other (somnolent), No AAOx3 Psychiatric: No interacting appropriately, No agitated Lymph, Heme, Immunologic: no cervical LAD ICD10 Worksheet Patient Problems: Problems Problem Status Onset Complete heart block by electrocardiogram Acute Pneumonia Acute Pulmonary edema cardiac cause Acute
[2017-03-06 18:28] LABS: POTASSIUM 3.3 mEq/L (3.5-5.2)
[2017-03-06] MEDS: D5W NS 1,000 ML IV SCH (20:43)
[2017-03-06] MEDS ORDERED: ALPRAZolam 1 MG TAB PO SCH (21:00)
[2017-03-07] MEDS: KETOROLAC 15 MG/1 ML SDV IVP SCH ×4 (00:20→17:55)
[2017-03-07] MEDS: D5W NS 1,000 ML IV SCH (03:21)
[2017-03-07 05:12] LABS: % IMMATURE GRANULYOCYTES 1.9 % (0.0-1.1); ABSOLUTE IMMATURE GRANULOCYTES 0.14 10^3/uL (0.00-0.10); ADD DIFF? NO; ADD MORPH? NO; ADD SCAN? NO; ATYPICAL LYMPHOCYTE FLAG 20 (0-99); FRAGMENT RBC FLAG 0 (0-99); HEMATOCRIT 31.9 % (40.0-51.0); HEMOGLOBIN 10.8 g/dL (13.7-17.5); LEFT SHIFT FLG 20 (0-99); LIPEMIA HEMOLYSIS FLAG 90 (0-99); MEAN CELL HEMOGLOBIN 33.5 pg (27.9-34.1); MEAN CELL HEMOGLOBIN CONCENTR. 33.9 g/dL (32.4-36.7); MEAN CELL VOLUME 99.1 fL (81.5-99.8); MEAN PLATELET VOLUME 10.6 fL (8.7-11.7); PLATELET CLUMPS FLAG 0 (0-99); PLATELET COUNT 217 10^3/uL (150-400); RED BLOOD CELL COUNT 3.22 10^6/uL (4.40-6.38); RED CELL DISTRIBUTION WIDTH 12.6 % (11.5-15.2)
[2017-03-07 05:26] LABS: ALANINE AMINOTRANSFERASE 63 IU/L (21-72); ALBUMIN 2.5 g/dL (3.5-5.0); ALKALINE PHOSPHATASE 97 IU/L (38-126); ANION GAP 12 mEq/L (8-16); ASPARTATE AMINOTRANSFERASE 69 IU/L (17-59); BILIRUBIN,TOTAL 0.5 mg/dL (0.1-1.4); CALCIUM 8.1 mg/dL (8.5-10.4); CARBON DIOXIDE 26 mEq/l (22-31); CHLORIDE 108 mEq/L (97-110); CREATININE 0.8 mg/dL (0.7-1.3); GLOMERULAR FILTRATION RATE > 60; GLUCOSE 112 mg/dL (70-100); MAGNESIUM 1.8 mg/dL (1.6-2.3); POTASSIUM 4.6 mEq/L (3.5-5.2); SODIUM 146 mEq/L (134-144); TOTAL PROTEIN 5.1 g/dL (6.3-8.2)
[2017-03-07] MEDS: LORazepam 2 MG/ML INJ IVP PRN (07:17)
[2017-03-07] MEDS: ENOXAPARIN 80 MG/0.8 ML SYR SC SCH ×2 (07:18→21:10)
[2017-03-07] MEDS: ADDERALL 10 MG TAB PO SCH (07:21)
[2017-03-07] MEDS: POLYETHYLENE GLYCOL 3350 17 GM PKT PO SCH (07:21)
[2017-03-07] MEDS: SENNOSIDES/DOCUSATE SODIUM TAB PO SCH ×2 (07:21→21:09)
[2017-03-07] MEDS: ADDERALL 20 MG TAB PO SCH (07:21)
--- NOTE | 2017-03-07 08:28 | PDCARPN ---
Cardiology Progress Note Chief Complaint: No cardiovascular complaints were voiced, but patient stated that he was not feeling too good this morning. Furthermore, the patient mental state is still moderately confused. Assessment/Plan: Assessment: 03-07-17 No cardiovascular complaints, but the patient remains moderately confused. No complaints of chest pains or pressure. Ongoing anticoagulation with lovenox for newly noted bilateral pulmonary emboli. Third degree AVB continues to be intermittently noted. [facility] did see patient yesterday, and felt, as I, that the patient should have PPM prior to discharge, but not in the setting ( with maintained blood pressure, mental status, and heart rates noted) of possible pneumonia (uncertain if this is PE related or true pneumonia) and the mental status that is being noted. 03-06-17 Moderate to large bilateral pulmonary emboli were noted on CT of chest. Ongoing anticoagulation with full strength Lovenox. Telemetry continues to reveal periodic third degree AVB. Heart rate, oxygen sats, blood pressure, and mental status continue to be normal, but I do question if the mental status ( somnolence) that the patient has manifested is secondary to this arrhythmia. Heart rates are generally >50 bpm (with third degree AVB), and blood pressures are normal (114/56 mm Hg). As the thrombus burden diminishes, would monitor heart rhythm closely. The patient may require PPM implantation, but would ensure that no active infection noted. 03-05-17 Patient is a 41 y/o male with unremarkable past cardiovascular history (no CAD, HTN, HLP, or DM), but a history of bipolar and schizophrenia (as per mother and ), who presented to [facility] via private transport with signs and symptoms of infection. Work up in the ER with complete heart block noted (maintaining mental status, blood pressure, and heart rates of >50 bpm). Chest x-ray with consolidation and infiltrates, and concerns about pneumonia. Blood cultures were obtained, and antibiotics were started. Inability to void was addressed with canela. Placement of the canela was traumatic and consistent with prostate pathology (NOS). Further history obtained on the floor with weight loss (about 20 pounds - patient denies, but reports). Abrupt cessation of some psych medications. Abdominal pains are more pronounced today. No productive cough. Fevers had been noted, but patient denies any as of today. ECG and telemetry with episodic third degree AVB (initial ECG with third degree AVB, but today's ECG with sinus rhythm and first degree AVB). While speaking with the patient today, both rhythms were noted on telemetry. Elevation in the D-dimer was noted , but no CT rule out PE given thoughts that all might be secondary to "pneumonia ". Troponin has not been noted to be elevated (three samples drawn). Flu swab was negative. Plan: (1) Recommendations for CT of head given the degree of confusion that continues to be noted (2) Would maintain antibiotics as at present (3) Anticoagulation to continue with the newly noted bilateral PE diagnosis (4) Would continue monitor on tele/ECG as well as the haemodynamic stability ( which has been maintained, and diminished the acute need for PPM). Should there be changes noted, accelerated discussion about the need for PPM (5) Would ambulate patient (up in chair) today - OT/PT evaluation Subjective: No cardiovascular complaints, but ongoing moderate confusion is noted Reviewed/Discussed With: multidisciplinary team Objective: Vital Signs (8 Hrs) Temp Pulse Resp BP Pulse Ox 03/07/17 07:23 36.8 C 50 L 22 H 131/67 H 95 03/07/17 06:00 57 L 22 H 131/67 H 95 03/07/17 04:00 38.3 C 53 L 20 140/58 H 93 03/07/17 02:00 48 L 24 H 119/56 L 94 Intake/Output (24 Hrs) 03/06/17 03/07/17 03/08/17 05:59 05:59 05:59 Intake Total 3909 3992 Output Total 1330 1375 Balance 2579 7247 Intake: Oral (ml) 500 1200 IV Intake (ml) 1675 IV Infused (ml) 1734 2792 D5w Ns 1,000 ml @ 150 mls 1634 2792 /hr IV CONT ALYSA Rx#: [id number] cefTRIAXone 1 GM/DEXTROSE 100 50 ml @ 100 mls/hr IV DAILY ALYSA Rx#:[id number] Output: Urine (ml) 1330 1375 Catheter 1330 1375 Other: Intake Quantity Yes Sufficient Output Comment Catheter straight cath Bladder Scan Volume (ml) Catheter 450 Result Diagrams: 03/07/17 04:55 03/07/17 04:55 Cardiac Labs: Cardiac Lab Results (72 Hrs) 03/05/17 03/04/17 04:50 23:00 Troponin I < 0.012 < 0.012 Telemetry: third degree heart block with ventricular rates of 50-55 bpm (blood pressures maintained) - Physical Exam Constitutional: WDWN, obese, other (moderate confusion) Eyes: PERRL Ears, Nose, Mouth, Throat: moist mucous membranes Cardiovascular: no murmurs, irregularly irregular, jugular vein distention, pulses symmetric bilat Peripheral Pulses: 2+: dorsalis-pedis (R), dorsalis-pedis (L) Respiratory: clear to auscultate bilat, no crackles Gastrointestinal: normoactive bowel sounds Skin: no rashes, no edema Musculoskeletal: no muscular tenderness Neurologic: CN II-XII grossly intact Psychiatric: cooperative, interactive, encephalopathic ICD10 Worksheet Patient Problems: Problems Problem Status Onset Complete heart block by electrocardiogram Acute Pneumonia Acute Pulmonary edema cardiac cause Acute
[2017-03-07] MEDS ORDERED: MAGNESIUM SULF 1 GM/DEXTROSE 100 ML IV ONE (08:44)
[2017-03-07] MEDS: ALPRAZolam 0.5 MG TAB PO PRN ×2 (10:51→17:03)
[2017-03-07] MEDS: oxyCODONE IR 15 MG TAB PO PRN ×3 (10:51→22:30)
[2017-03-07] MEDS: ACETAMINOPHEN 325 MG TAB PO PRN (12:27)
--- NOTE | 2017-03-07 12:56 | PDINTPN ---
Aerial Installer Progress Note Assessment/Plan: Assessment: Bilateral pulmonary embolic disease, moderate volume. On full-dose enoxaparin. Improving. No evidence of DVT. No evidence of pulmonary hypertension Right lower lobe infiltrate: Possible pneumonia. Cannot exclude this although other etiologies such as a pulmonary infarct or localized blood may be present. Would continue antibiotics. Cardiac arrhythmias: Status post heart block. Now alternating between sinus with bradycardia, Mobitz type 1, etc. Cardiology following, recommending a pacemaker this admission. Chest pain: Pleuritic on right, remains present. Pleural rub is present. Psychiatric: History of ADD, possibly bipolar. Also has chronic pain, chronic narcotic and benzodiazepine. ? abuses both of these. May have a component of withdrawal. Xanax to be increased per wishes of the patient's . Metabolic: No issues currently identified. Anemia. Hematocrit 32, stable, down from 38. No active bleeding identified. Dilutional suspected, possible illness related as well. Plan: Continue present care in the intensive care unit. Continue full-dose anticoagulation. Will not switch to a oral anticoagulant at the present time secondary to his need for a pacer. Continue antibiotics and bronchopulmonary therapies. Continue pain control with opiates/nonsteroidals. Decrease as tolerated. Continue Xanax, increase. Follow laboratory. 35 min of critical care time spent directly with the patient. Discussed with the patient's and family, hospitalist, nursing, and the ICU multi disciplinary team. Subjective: Complains of right-sided back/chest pain with movement and inspiration. Cough, not bringing up any blood or sputum. Not getting enough Xanax per the patient' s Objective: Vital Signs Temp Pulse Resp BP Pulse Ox 37.7 C 54 L 22 H 136/61 H 92 03/07/17 12:00 03/07/17 12:00 03/07/17 12:00 03/07/17 12:00 03/07/17 12:00 Microbiology 03/05/17 16:57 Urine Culture - Final Urine,Clean Catch Laboratory Results 03/07/17 04:55 03/07/17 04:55 03/06/17 03/07/17 03/08/17 05:59 05:59 05:59 Intake Total 3909 3992 Output Total 1330 1375 900 Balance 2579 2617 -900 PT 17.3 SEC (12.0-15.0) H 03/05/17 04:50 INR 1.40 (0.83-1.16) H 03/05/17 04:50 CXR: Improved aeration. Bibasilar atelectasis/infiltrates are significantly improved. Physical Exam - Physical Exam General Appearance: mild distress (Secondary to pain), anxiety EENT: PERRL/EOMI, other (Nasal cannula at 3 L) Neck: normal inspection (No JVD) Respiratory: decreased breath sounds (At bases. Rales and a rub are present on the right posteriorly.), rales (Present bilaterally, right greater than left), No rhonchi, No wheezing Cardiac/Chest: bradycardia (Variable block present) Abdomen: non-tender, distended, No normal bowel sounds (Decreased, present) Male Genitalia: other (Cacrees catheter in place for urinary retention. Good urine output) Skin: normal color, warm/dry, No diaphoresis (This morning) Extremities: No pedal edema, No swelling Neuro/Psych: no motor/sensory deficits, cognition abnormalities (Remains somewhat lethargic, short but appropriate responses, mildly confused at times. On significant amounts of narcotics.) ICD10 Worksheet Patient Problems: Problems Problem Status Onset Complete heart block by electrocardiogram Acute Pulmonary edema cardiac cause Acute Pneumonia Acute
[2017-03-07 13:38] LABS: PROTEIN C ACTIVITY 42 % (70 - 150)
--- NOTE | 2017-03-07 14:20 | ASMTCMCOM ---
CM Note CM Note Notes: Patient continues to have altered mental status and agitation. Dr will increase Xanax during the day to decrease agitation. Patient will likely need a pacemaker when he stabilizes medically. No d/c needs are known at this time. CM available if needs arise. Date Signed: 03/07/2017 02:19 PM Electronically Signed By:Elda Padilla LCSW
[2017-03-07 15:52] LABS: PROTEIN S ACTIVITY 72 % (65 - 160)
[2017-03-07] MEDS ORDERED: OLANZapine DISINTEGR 5 MG TAB PO PRN (15:53)
--- NOTE | 2017-03-07 15:59 | HOSPPROG ---
Hospitalist Progress Note Assessment/Plan: * Acute PE -SubQ Lovenox - await transition to PO until after PCM * Possible PNA - more likely pulmonary infarct -continue empiric IV ceftriaxone * 3rd degree Heart block -PCM prior to discharge, await improved clinical status * Metabolic encephalopathy - suspect benzo withdrawal -increase Xanax closer to home doses * Bipolar -resume Abilify * Acute urinary retention - canela -start Flomax * Mediastinal LAD - f/u CT 3 months Subjective: Hallucinating, sweating, in and out mental status Objective: Vital Signs Temp Pulse Resp BP Pulse Ox 37.7 C 89 22 H 108/66 97 03/07/17 12:00 03/07/17 14:00 03/07/17 14:00 03/07/17 14:00 03/07/17 14:00 Microbiology 03/05/17 16:57 Urine Culture - Final Urine,Clean Catch Laboratory Results 03/07/17 04:55 03/07/17 04:55 03/06/17 03/07/17 03/08/17 05:59 05:59 05:59 Intake Total 3909 3992 Output Total 1330 1375 1900 Balance 2579 2617 -1900 PT 17.3 SEC (12.0-15.0) H 03/05/17 04:50 INR 1.40 (0.83-1.16) H 03/05/17 04:50 d/w Dr. Murillo - increase benzos today CT chest - + PE, pulmonary infarct, mediastinal LAD - needs 3 month follow-up - Physical Exam Constitutional: no apparent distress, appears nourished, not in pain Cardiovascular: regular rate and rhythym, no murmur, rub, or gallop Respiratory: no respiratory distress, no rales or rhonchi, clear to auscultation Gastrointestinal: normoactive bowel sounds, soft, non-tender abdomen, no palpable masses Skin: no rashes or abrasions, no fluctuance, no induration Neurologic: AAOx3, sensation intact bilaterally Psychiatric: interacting appropriately, encephalopathic, anxious, poor insight, poor judgement, poor memory, No thought process linear ICD10 Worksheet Patient Problems: Problems Problem Status Onset Complete heart block by electrocardiogram Acute Pneumonia Acute Pulmonary edema cardiac cause Acute
[2017-03-07 18:51] LABS: POTASSIUM 3.8 mEq/L (3.5-5.2)
[2017-03-07] MEDS ORDERED: POTASSIUM CL 10 MEQ TAB PO ONE (20:17)
[2017-03-07] MEDS: ARIPiprazole 10 MG TAB PO SCH (21:09)
[2017-03-07] MEDS: ALPRAZolam 1 MG TAB PO SCH (21:09)
[2017-03-08] MEDS: LORazepam 2 MG/ML INJ IVP PRN ×3 (00:44→14:33)
[2017-03-08] MEDS: KETOROLAC 15 MG/1 ML SDV IVP SCH ×3 (00:44→12:27)
[2017-03-08 06:13] LABS: ADD DIFF? YES; ADD MORPH? NO; ADD SCAN? NO; ATYPICAL LYMPHOCYTE FLAG 40 (0-99); FRAGMENT RBC FLAG 0 (0-99); HEMOGLOBIN 9.8 g/dL (13.7-17.5); LEFT SHIFT FLG 20 (0-99); LIPEMIA HEMOLYSIS FLAG 90 (0-99); MEAN CELL HEMOGLOBIN 33.7 pg (27.9-34.1); MEAN CELL HEMOGLOBIN CONCENTR. 33.8 g/dL (32.4-36.7); MEAN CELL VOLUME 99.7 fL (81.5-99.8); MEAN PLATELET VOLUME 10.8 fL (8.7-11.7); PLATELET CLUMPS FLAG 0 (0-99); PLATELET COUNT 236 10^3/uL (150-400); RED BLOOD CELL COUNT 2.91 10^6/uL (4.40-6.38)
[2017-03-08 06:31] LABS: ANION GAP 13 mEq/L (8-16); CARBON DIOXIDE 24 mEq/l (22-31); CHLORIDE 111 mEq/L (97-110); CREATININE 0.9 mg/dL (0.7-1.3); GLOMERULAR FILTRATION RATE > 60; GLUCOSE 98 mg/dL (70-100); MAGNESIUM 1.8 mg/dL (1.6-2.3); POTASSIUM 4.3 mEq/L (3.5-5.2); SODIUM 148 mEq/L (134-144)
[2017-03-08 06:35] LABS: HYPOCHROMIA 1+; MACROCYTES 1+; MICROCYTES 1+; PLATELET ESTIMATE ADEQUATE (ADEQ)
[2017-03-08] MEDS: ADDERALL 20 MG TAB PO SCH (08:30)
[2017-03-08] MEDS: ADDERALL 10 MG TAB PO SCH (08:30)
[2017-03-08] MEDS: ENOXAPARIN 80 MG/0.8 ML SYR SC SCH (08:31)
[2017-03-08] MEDS: SENNOSIDES/DOCUSATE SODIUM TAB PO SCH ×2 (08:31→21:52)
[2017-03-08] MEDS: TAMSULOSIN HCL 0.4 MG CAP PO SCH (08:31)
[2017-03-08] MEDS ORDERED: 1/2 NS 1,000 ML IV SCH ×2 (09:15→17:00)
[2017-03-08] MEDS ORDERED: MAGNESIUM SULF 1 GM/DEXTROSE 100 ML IV ONE (10:05)
--- NOTE | 2017-03-08 12:29 | SOAPPROG ---
AMITA Progress Note Assessment/Plan: Assessment/Plan: This is a 41 yr old with no previous cardiac history is here for abdo pain and noted to have PE. He is on Lovenox for the same. With initiation of Abilify his mental status has improved significantly. Discussing his history, he mentions that he has had decrease in exercise capacity for the past one year. Pt's CHB continues and with exercise heart block gets worse. In view of this the pt merits a dual chamber pacemaker. There is a concern considering his bipolar disease and his change of mental status if off of Abilify. On the other hand, his CHB is the reason for his lack of exercise capacity. ?etiology of CHB in a young patient ?sarcoidosis. will discuss with radiology regarding need for cMRI prior to pacemaker implant. 03/08/17 12:20 Subjective: Pt is alert oriented and appropriately answers questions. he mentions that he has had decreased exercise capacity and this is corroborated by his mother in law. He denies presyncope or syncope Objective: Vital Signs Temp Pulse Resp BP Pulse Ox 37.7 C 62 24 H 121/68 H 92 03/08/17 08:00 03/08/17 11:57 03/08/17 11:57 03/08/17 11:57 03/08/17 11:57 Microbiology 03/05/17 16:57 Urine Culture - Final Urine,Clean Catch Laboratory Results 03/08/17 06:00 03/08/17 06:00 03/07/17 03/08/17 03/09/17 05:59 05:59 05:59 Intake Total 3992 3083 Output Total 1375 3250 Balance 2617 -167 PT 17.3 SEC (12.0-15.0) H 03/05/17 04:50 INR 1.40 (0.83-1.16) H 03/05/17 04:50 Physical Exam - Physical Exam General Appearance: alert, no apparent distress EENT: PERRL/EOMI, pharynx normal Neck: non-tender, supple Respiratory: lungs clear, normal breath sounds, crackles Cardiac/Chest: regular rate, rhythm, No edema, No gallop Abdomen: soft, organomegaly Skin: normal color ICD10 Worksheet Patient Problems: Problems Problem Status Onset Complete heart block by electrocardiogram Acute Pneumonia Acute Pulmonary edema cardiac cause Acute
[2017-03-08] MEDS ORDERED: GADOBUTROL 10 ML VIAL IVP ONE (13:32)
--- NOTE | 2017-03-08 14:41 | PDINTPN ---
Naturopathic Doctor Progress Note Assessment/Plan: Assessment: Bilateral pulmonary embolic disease, moderate volume. On full-dose enoxaparin. Improving. No evidence of DVT. No evidence of pulmonary hypertension Right lower lobe infiltrate: Possible pneumonia. Cannot exclude this although other etiologies such as a pulmonary infarct or localized blood may be present. Would continue antibiotics. Cardiac arrhythmias: Variable heart block. Now alternating between sinus with bradycardia, Mobitz type 1, III, etc. Cardiology following, recommending a pacemaker this admission. Chest pain: Pleuritic on right, remains present. Pleural rub is present. Improving Psychiatric: Mental status clearly better and more appropriate today. History of ADD, bipolar. Also has chronic pain, chronic narcotic and benzodiazepine. ? abuses both of these. May have had a component of withdrawal. Metabolic: No issues currently identified. Anemia. Hematocrit 29, stable, down from 38. No active bleeding identified. Dilutional suspected, possible illness related as well. Plan: Continue present care. Continue full-dose anticoagulation. Will not switch to a oral anticoagulant at the present time secondary to his need for a pacer. Continue ceftriaxone for 7-10 days. Continue bronchopulmonary therapies for now. Continue pain control with opiates/nonsteroidals. Decrease as tolerated. Continue Xanax at current scheduled and p.r.n. doses. Follow laboratory. Can transfer to PCU today. 30 min of critical care time spent directly with the patient. Discussed with the patient's and family, hospitalist, nursing, and the ICU multi disciplinary team. 1 Subjective: Feels better today, much less pain, more alert, responsive, appropriate. Objective: Vital Signs Temp Pulse Resp BP Pulse Ox 37.7 C 62 24 H 121/68 H 92 03/08/17 08:00 03/08/17 11:57 03/08/17 11:57 03/08/17 11:57 03/08/17 11:57 Microbiology 03/05/17 16:57 Urine Culture - Final Urine,Clean Catch Laboratory Results 03/08/17 06:00 03/08/17 06:00 03/07/17 03/08/17 03/09/17 05:59 05:59 05:59 Intake Total 3992 3083 Output Total 1375 3250 Balance 2617 -167 PT 17.3 SEC (12.0-15.0) H 03/05/17 04:50 INR 1.40 (0.83-1.16) H 03/05/17 04:50 Physical Exam - Physical Exam General Appearance: alert, no apparent distress EENT: other (Nasal cannula at 2 L) Neck: normal inspection (No JVD) Respiratory: lungs clear (Anteriorly), decreased breath sounds (At bases, right more than left. Improved aeration today), rales, pleural rub (Decreased on right verses coarse rales), No rhonchi, No wheezing Cardiac/Chest: bradycardia (With third-degree heart block) Abdomen: non-tender, soft, distended (Less distended), No normal bowel sounds ( Present, decreased) Male Genitalia: other (Caceres catheter in place, good urine output) Skin: normal color, warm/dry Extremities: No pedal edema, No swelling Neuro/Psych: no motor/sensory deficits (Moves all extremities), cognition abnormalities (Improved) ICD10 Worksheet Patient Problems: Problems Problem Status Onset Complete heart block by electrocardiogram Acute Pulmonary edema cardiac cause Acute Pneumonia Acute
[2017-03-08] MEDS ORDERED: LORazepam 2 MG/ML INJ IVP PRN (16:49)
--- NOTE | 2017-03-08 16:52 | HOSPPROG ---
Hospitalist Progress Note Assessment/Plan: * Acute PE -SubQ Lovenox - await transition to PO until after PCM -hold lovenox tonight for PCM in am * Possible PNA - more likely pulmonary infarct -continue empiric IV ceftriaxone * 3rd degree Heart block -cardiac MRI r/o sarcoid, lyme dz testing sent -PCM in am per Dr. Lenz * Metabolic encephalopathy - due to benzo withdrawal -increase Xanax closer to home doses - improved * Bipolar -resume Abilify * Acute urinary retention - canela -start Flomax -difficult traumatic canela placement - too soon to DC * Mediastinal LAD - f/u CT 3 months Subjective: Mental status better today Objective: Vital Signs Temp Pulse Resp BP Pulse Ox 37.7 C 50 L 20 130/85 H 96 03/08/17 08:00 03/08/17 16:00 03/08/17 16:00 03/08/17 16:00 03/08/17 16:00 Microbiology 03/05/17 16:57 Urine Culture - Final Urine,Clean Catch Laboratory Results 03/08/17 06:00 03/08/17 06:00 03/07/17 03/08/17 03/09/17 05:59 05:59 05:59 Intake Total 3992 3083 Output Total 1375 3250 800 Balance 2617 -167 -800 PT 17.3 SEC (12.0-15.0) H 03/05/17 04:50 INR 1.40 (0.83-1.16) H 03/05/17 04:50 d/w Dr. Lenz - plan for PCM in am - cardiac MRI and lyme testing first tele - 3rd degree complete HB stable - Physical Exam Constitutional: no apparent distress, appears nourished, not in pain Cardiovascular: regular rate and rhythym, no murmur, rub, or gallop Respiratory: no respiratory distress, no rales or rhonchi, clear to auscultation Gastrointestinal: normoactive bowel sounds, soft, non-tender abdomen, no palpable masses Skin: no rashes or abrasions, no fluctuance, no induration Neurologic: AAOx3, sensation intact bilaterally Psychiatric: interacting appropriately, not anxious, not encephalopathic, thought process linear ICD10 Worksheet Patient Problems: Problems Problem Status Onset Complete heart block by electrocardiogram Acute Pneumonia Acute Pulmonary edema cardiac cause Acute
[2017-03-08 19:33] LABS: POTASSIUM 3.8 mEq/L (3.5-5.2)
[2017-03-08] MEDS ORDERED: POTASSIUM CL 10 MEQ TAB PO ONE (20:29)
[2017-03-08] MEDS: ARIPiprazole 10 MG TAB PO SCH (21:27)
[2017-03-08] MEDS: ALPRAZolam 1 MG TAB PO SCH (21:27)
[2017-03-09 02:41] LABS: ABSOLUTE NRBC COUNT 0.02 10^3/uL (0-0.01); ADD DIFF? YES; ADD MORPH? NO; ADD SCAN? NO; ATYPICAL LYMPHOCYTE FLAG 60 (0-99); FRAGMENT RBC FLAG 0 (0-99); HEMATOCRIT 28.6 % (40.0-51.0); HEMOGLOBIN 9.8 g/dL (13.7-17.5); LEFT SHIFT FLG 40 (0-99); LIPEMIA HEMOLYSIS FLAG 90 (0-99); MEAN CELL HEMOGLOBIN 33.3 pg (27.9-34.1); MEAN CELL HEMOGLOBIN CONCENTR. 34.3 g/dL (32.4-36.7); MEAN CELL VOLUME 97.3 fL (81.5-99.8); MEAN PLATELET VOLUME 10.5 fL (8.7-11.7); NRBC-AUTO% 0.3 % (0.0-0.2); PLATELET CLUMPS FLAG 0 (0-99); PLATELET COUNT 318 10^3/uL (150-400); RED BLOOD CELL COUNT 2.94 10^6/uL (4.40-6.38); RED CELL DISTRIBUTION WIDTH 12.6 % (11.5-15.2)
[2017-03-09 02:49] LABS: INR 1.68 (0.83-1.16); PROTIME(PATIENT) 19.9 SEC (12.0-15.0)
[2017-03-09 02:50] LABS: ALANINE AMINOTRANSFERASE 64 IU/L (21-72); ALBUMIN 2.6 g/dL (3.5-5.0); ALKALINE PHOSPHATASE 95 IU/L (38-126); ANION GAP 12 mEq/L (8-16); APTT 36.3 SEC (23.0-38.0); ASPARTATE AMINOTRANSFERASE 68 IU/L (17-59); BILIRUBIN,TOTAL 0.4 mg/dL (0.1-1.4); CALCIUM 8.3 mg/dL (8.5-10.4); CARBON DIOXIDE 24 mEq/l (22-31); CHLORIDE 111 mEq/L (97-110); CREATININE 0.8 mg/dL (0.7-1.3); GLOMERULAR FILTRATION RATE > 60; GLUCOSE 113 mg/dL (70-100); POTASSIUM 3.9 mEq/L (3.5-5.2); SODIUM 147 mEq/L (134-144); TOTAL PROTEIN 5.3 g/dL (6.3-8.2)
[2017-03-09 03:10] LABS: HYPOCHROMIA 1+; MICROCYTES 1+; PLATELET ESTIMATE ADEQUATE (ADEQ); POLYCHROMASIA 1+
[2017-03-09] MEDS ORDERED: NS 1,000 ML IV ONE (06:00)
[2017-03-09] MEDS ORDERED: ceFAZolin 2 GM/SWFI 2 GM/20 ML SYR IVP ONE (06:00)
[2017-03-09] MEDS ORDERED: BACITRACIN IRRIGATION/NS 50,000 UNITS/1,000 ML BTL IRR ONE (06:00)
[2017-03-09] MEDS ORDERED: SENNOSIDES/DOCUSATE SODIUM TAB PO PRN (06:29)
[2017-03-09] MEDS ORDERED: POTASSIUM CL 10 MEQ TAB PO ONE ×2 (07:48→19:54)
[2017-03-09] MEDS: TAMSULOSIN HCL 0.4 MG CAP PO SCH (08:48)
[2017-03-09] MEDS: ADDERALL 10 MG TAB PO SCH (08:49)
[2017-03-09] MEDS: ADDERALL 20 MG TAB PO SCH (08:51)
[2017-03-09] MEDS: oxyCODONE IR 15 MG TAB PO PRN ×3 (09:02→20:54)
[2017-03-09] MEDS: ALPRAZolam 0.25 MG TAB PO PRN (09:02)
[2017-03-09] MEDS ORDERED: HEPARIN 10,000 UNIT/10 ML MDV IVP PRN (09:22)
[2017-03-09] MEDS ORDERED: HEPARIN/DEXTROSE 500 ML IV SCH (09:30)
--- NOTE | 2017-03-09 10:35 | SOAPPROG ---
SOAP Progress Note Assessment/Plan: Assessment/Plan: This is a 41 yr old with no previous cardiac history is here for abdo pain and noted to have PE. He is on Lovenox for the same. With initiation of Abilify his mental status has improved significantly, however , he continues to have occasions of lapses and is found to tug on IV line and electrodes. He had episodes of diarrhea overnight and had 10 loose motion episodes. No fever but has abdo pain. COnsidering this, will hold off on PPM for today. . Discussing his history, he mentions that he has had decrease in exercise capacity for the past one year. Pt's CHB continues and with exercise heart block gets worse as witnessed iring ambulation yesterday. In view of this the pt merits a dual chamber pacemaker. There is a concern considering his bipolar disease and his change of mental status if off of Abilify. On the other hand, his CHB is the reason for his lack of exercise capacity. ?etiology of CHB in a young patient ?sarcoidosis. will await results of cMRI ( though it was not completed due to pt not able to cooperate). As and when he has PPM implant, will need anesthesia support. All the risks have been discussed with the family. They understand these, especially in light of his bipolar disease and changing mental status. 03/09/17 10:32 Subjective: Pt had 10 BM yesterday with loose stools. Continues to have episodes of mental lapse and confusion. Objective: Vital Signs Temp Pulse Resp BP Pulse Ox 36.6 C 78 20 126/70 H 97 03/09/17 07:22 03/09/17 07:22 03/09/17 07:22 03/09/17 07:22 03/09/17 07:22 Laboratory Results 03/09/17 02:15 03/09/17 02:15 03/08/17 03/09/17 03/10/17 05:59 05:59 05:59 Intake Total 3083 100 Output Total 3250 800 Balance -167 -700 PT 19.9 SEC (12.0-15.0) H 03/09/17 02:15 INR 1.68 (0.83-1.16) H 03/09/17 02:15 Physical Exam - Physical Exam General Appearance: alert, mild distress EENT: PERRL/EOMI, No scleral icterus (R), No scleral icterus (L) Neck: supple, No lymphadenopathy (R), No lymphadenopathy (L) Respiratory: decreased breath sounds, crackles, No rhonchi Cardiac/Chest: regular rate, rhythm, No edema, No gallop Abdomen: non-tender, soft, No organomegaly Skin: normal color, warm/dry ICD10 Worksheet Patient Problems: Problems Problem Status Onset Complete heart block by electrocardiogram Acute Pneumonia Acute Pulmonary edema cardiac cause Acute
[2017-03-09] MEDS ORDERED: ENOXAPARIN 80 MG/0.8 ML SYR SC SCH (10:45)
--- NOTE | 2017-03-09 14:27 | ASMTCMCOM ---
ARABELLA Note ARABELLA Note Notes: Chart reviewed. Patient has CHB. Was off all meds. Better now that he has resumed.them PM placement delayed due to diarrhea, Testing results pending. Periods of confusion persist. Therapy recommending home with 24 hour supervision.. ARABELLA thurston. Date Signed: 03/09/2017 02:27 PM Electronically Signed By:Alyssa Carrion RN
[2017-03-09] MEDS: ENOXAPARIN 80 MG/0.8 ML SYR SC SCH ×2 (15:04→22:14)
--- NOTE | 2017-03-09 16:53 | HOSPPROG ---
Hospitalist Progress Note Assessment/Plan: * Acute PE -SubQ Lovenox - await transition to PO until after PCM -hold lovenox tonight for possible PCM in am * Possible PNA - more likely pulmonary infarct -continue empiric IV ceftriaxone * 3rd degree Heart block -cardiac MRI r/o sarcoid, lyme dz testing sent -possible PCM in am depending on clinical status overnight * Metabolic encephalopathy - due to benzo withdrawal -increase Xanax closer to home doses - improved * Bipolar -resume Abilify * Acute urinary retention - canela -start Flomax -difficult traumatic canela placement - DC soon * Mediastinal LAD - f/u CT 3 months * Constipation - resolved -feels much better - better PO intake Subjective: Agitated last night due to diarrhea. Not today Objective: Vital Signs Temp Pulse Resp BP Pulse Ox 36.7 C 51 L 14 124/72 H 93 03/09/17 15:39 03/09/17 15:39 03/09/17 15:39 03/09/17 15:39 03/09/17 15:39 Laboratory Results 03/09/17 02:15 03/09/17 02:15 03/08/17 03/09/17 03/10/17 05:59 05:59 05:59 Intake Total 3083 100 Output Total 3250 800 Balance -167 -700 PT 19.9 SEC (12.0-15.0) H 03/09/17 02:15 INR 1.68 (0.83-1.16) H 03/09/17 02:15 d/w Dr. Lenz - no PCM today due to up all night with diarrhea, agitated tele reviewed - 3rd degree HB - Physical Exam Constitutional: no apparent distress, appears nourished, not in pain Cardiovascular: regular rate and rhythym, no murmur, rub, or gallop Respiratory: no respiratory distress, no rales or rhonchi, clear to auscultation Gastrointestinal: normoactive bowel sounds, soft, non-tender abdomen, no palpable masses Skin: no rashes or abrasions, no fluctuance, no induration Neurologic: AAOx3, sensation intact bilaterally Psychiatric: interacting appropriately, not anxious, not encephalopathic, thought process linear ICD10 Worksheet Patient Problems: Problems Problem Status Onset Complete heart block by electrocardiogram Acute Pneumonia Acute Pulmonary edema cardiac cause Acute
[2017-03-09 18:33] LABS: POTASSIUM 3.6 mEq/L (3.5-5.2)
--- NOTE | 2017-03-09 19:27 | SOAPPROG ---
SOAP Progress Note Assessment/Plan: Assessment: Bilateral pulmonary embolic disease, at least moderate volume. On full-dose enoxaparin. Improving. No evidence of DVT. No evidence of pulmonary hypertension. Right lower lobe infiltrate: Possible pneumonia as infiltrate on admission was quite extensive at the right base, much more than is usually seen with pulmonary infarction or blood. Cannot exclude these etiologies however. Would continue IV antibiotics through pacemaker placement then switched to oral to complete a 10 day course.. Cardiac arrhythmias: Variable heart block. Now alternating between sinus with bradycardia, Mobitz type 1, III, etc. Cardiology following, for pacemaker placement tomorrow. Chest pain: Pain now resolved but significant pleural rub persists on the right , louder now that he is moving more air and does not have chest pain. Psychiatric: Mental status is much improved, probably close to his baseline. History of ADD, bipolar. Also has chronic pain, chronic narcotic and benzodiazepine use. May have had a component of withdrawal early on, now resolved. Metabolic: No issues currently identified. Anemia. Hematocrit 29, stable, down from 38. No active bleeding identified. Dilutional suspected, possible illness related as well. Urinary retention: Caceres catheter in place, on Flomax. Plan is to DC Caceres after the pacemaker and see how he does regarding urination. May need Urology consult. Plan: Continue present care. Hold Lovenox for pacemaker placement. Restart afterwards and then transition to an oral anticoagulant. Continue ceftriaxone through pacemaker then switch to oral antibiotics for total of a 10 day course. Continue bronchopulmonary therapies for now. Continue pain control with opiates/nonsteroidals as needed. Continue Xanax at current scheduled and p.r.n. doses. Follow laboratory. I would be happy to see him back in outpatient follow-up for pulmonary embolism and possible pneumonia. His primary care physician is at [facility] in [place]. All the above discussed with patient, and family. Subjective: Doing well. Chest pain is now gone. Denies shortness of breath. No significant cough no hemoptysis. Objective: Vital Signs Temp Pulse Resp BP Pulse Ox 36.7 C 51 L 14 124/72 H 93 03/09/17 15:39 03/09/17 15:39 03/09/17 15:39 03/09/17 15:39 03/09/17 15:39 Laboratory Results 03/09/17 02:15 03/09/17 18:13 03/08/17 03/09/17 03/10/17 05:59 05:59 05:59 Intake Total 3083 100 Output Total 3250 800 1250 Balance -167 -700 -1250 PT 19.9 SEC (12.0-15.0) H 03/09/17 02:15 INR 1.68 (0.83-1.16) H 03/09/17 02:15 Laboratory Tests 03/06/17 03/07/17 15:40 04:55 Protein C Activity 42 L Protein S Activity 72 Antithrombin III Activ 59 L Factor V Leiden Mutat Pending Calcium 8.1 L Magnesium 1.8 Total Bilirubin 0.5 AST 69 H ALT 63 Albumin 2.5 L Anti-Cardiolipin IgG Ab <9.4 Anti-Cardiolipin IgM Ab <9.4 Physical Exam - Physical Exam General Appearance: alert, no apparent distress, other (Seen in bed, working on the computer) EENT: other (On room air) Neck: normal inspection (No JVD) Respiratory: lungs clear (Anteriorly), decreased breath sounds (At bases but significantly improved aeration), rales (Right base), pleural rub (Right base, much more prominent now as he has no pain and is moving good air.) Cardiac/Chest: regular rate, rhythm, other (P2 appears normal) Abdomen: normal bowel sounds, non-tender, soft Male Genitalia: other (Caceres catheter in place) Skin: normal color, warm/dry Extremities: No pedal edema, No swelling Neuro/Psych: no motor/sensory deficits, No cognition abnormalities ICD10 Worksheet Patient Problems: Problems Problem Status Onset Complete heart block by electrocardiogram Acute Pneumonia Acute Pulmonary edema cardiac cause Acute
[2017-03-09] MEDS: ARIPiprazole 10 MG TAB PO SCH (20:47)
[2017-03-09] MEDS: ALPRAZolam 1 MG TAB PO SCH (20:47)
[2017-03-10] MEDS: oxyCODONE IR 15 MG TAB PO PRN ×4 (02:17→23:22)
[2017-03-10 04:01] LABS: ABSOLUTE NRBC COUNT 0.05 10^3/uL (0-0.01); ADD DIFF? YES; ADD MORPH? NO; ADD SCAN? NO; ATYPICAL LYMPHOCYTE FLAG 30 (0-99); FRAGMENT RBC FLAG 0 (0-99); HEMATOCRIT 30.8 % (40.0-51.0); HEMOGLOBIN 10.2 g/dL (13.7-17.5); LEFT SHIFT FLG 50 (0-99); LIPEMIA HEMOLYSIS FLAG 80 (0-99); MEAN CELL HEMOGLOBIN 32.8 pg (27.9-34.1); MEAN CELL HEMOGLOBIN CONCENTR. 33.1 g/dL (32.4-36.7); MEAN PLATELET VOLUME 11.3 fL (8.7-11.7); NRBC-AUTO% 0.7 % (0.0-0.2); PLATELET CLUMPS FLAG 20 (0-99); PLATELET COUNT 252 10^3/uL (150-400); RED BLOOD CELL COUNT 3.11 10^6/uL (4.40-6.38); RED CELL DISTRIBUTION WIDTH 13.2 % (11.5-15.2)
[2017-03-10 04:24] LABS: ANION GAP 12 mEq/L (8-16); CARBON DIOXIDE 24 mEq/l (22-31); CHLORIDE 111 mEq/L (97-110); CREATININE 0.8 mg/dL (0.7-1.3); GLOMERULAR FILTRATION RATE > 60; GLUCOSE 96 mg/dL (70-100); MAGNESIUM 1.7 mg/dL (1.6-2.3); POTASSIUM 4.3 mEq/L (3.5-5.2); SODIUM 147 mEq/L (134-144)
[2017-03-10 05:14] LABS: HYPOCHROMIA 1+; MACROCYTES 1+; MICROCYTES 1+; PLATELET ESTIMATE ADEQUATE (ADEQ); POLYCHROMASIA 1+
[2017-03-10] MEDS ORDERED: MAGNESIUM SULF 1 GM/DEXTROSE 100 ML IV ONE (07:29)
[2017-03-10] MEDS ORDERED: HEPARIN 10,000 UNIT/10 ML MDV IVP PRN (10:00)
[2017-03-10] MEDS ORDERED: HEPARIN 10,000 UNIT/10 ML MDV IVP ONE (10:00)
--- NOTE | 2017-03-10 10:16 | PDCARPN ---
Cardiology Progress Note Assessment/Plan: Assessment: 1. CHB: Intermittant CHB. Increased block with ambulation per Dr. Lenz note. Currently in sinus los with Mobitz I. Asymptomatic. 2. Bilateral PE: currently on Lovenox 3. Anemia: Hgb 9.8 and Hct 28.6. Down from 38 on admit. 4. Hx of bipolar and schitzophrenia. Well managed on Abilify. 5. Mental confusion: hx of chronic pain, concern for possible withdrawl as well as having been off of Abilify 6. Urinary retention: Recommend removal of canela prior to pacemaker to limit infectious source NOTE: Blood Cultures NGTD x 5 days Plan: -DC Canela -Continue Lovenox -Plan for pacemaker tomorrow at 11:00 -NPO after midnight 03/10/17 10:07 Subjective: 41 year old male admitted last week with bilateral pulmonary emboli with no evidnece of DVT and RLL infiltrate. He was also foiund to be in CHB intermittantly with bradycardia and Wenkebach that has been asymptomatic. Course complicated by mental confusion. He has also had urinary retention and canela catheter for the last approx 5 days. Blood cx neg x 5 days. Currently in sinus los wiht wenkebach. Reviewed/Discussed With: family, hospitalist Time Spent With Patient: 30 min Objective: Vital Signs (8 Hrs) Temp Pulse Resp BP Pulse Ox 03/10/17 07:43 36.7 C 48 L 16 123/67 H 96 03/10/17 03:23 36.7 C 45 L 30 H 116/57 L 94 Intake/Output (24 Hrs) 03/09/17 03/10/17 03/11/17 05:59 05:59 05:59 Intake Total 100 Output Total 800 1250 Balance -700 -1250 Intake: IV Intake (ml) 100 Output: Urine (ml) 800 1250 Catheter 800 1250 Other: Number of Stools Toilet 1 Result Diagrams: 03/10/17 03:27 03/10/17 03:27 - Physical Exam Constitutional: WDWN Cardiovascular: regular rate and rhythm, no murmurs, no rubs, no gallops ( bradycardia ) Respiratory: clear to auscultate bilat Genitourinary: canela in urethra Skin: no rashes Neurologic: AAOx3, CN II-XII grossly intact Psychiatric: cooperative, interactive, following commands ICD10 Worksheet Patient Problems: Problems Problem Status Onset Complete heart block by electrocardiogram Acute Pneumonia Acute Pulmonary edema cardiac cause Acute
[2017-03-10] MEDS: ADDERALL 20 MG TAB PO SCH (10:29)
[2017-03-10] MEDS: ADDERALL 10 MG TAB PO SCH (10:29)
[2017-03-10 11:34] LABS: INR 1.4 (0.83-1.16); PROTIME(PATIENT) 17.3 SEC (12.0-15.0)
[2017-03-10 11:35] LABS: APTT 31.6 SEC (23.0-38.0)
[2017-03-10] MEDS: HEPARIN/DEXTROSE 500 ML IV SCH (11:37)
[2017-03-10] MEDS: TAMSULOSIN HCL 0.4 MG CAP PO SCH (12:55)
[2017-03-10] MEDS: ALPRAZolam 0.25 MG TAB PO PRN ×2 (12:55→23:21)
--- NOTE | 2017-03-10 15:44 | HOSPPROG ---
Hospitalist Progress Note Assessment/Plan: * Acute PE -IV heparin - hold in am for PCM placement * Possible PNA - more likely pulmonary infarct -continue empiric IV ceftriaxone * 3rd degree Heart block -cardiac MRI r/o sarcoid, lyme dz testing sent -PCM in am * Metabolic encephalopathy - due to benzo withdrawal -increase Xanax closer to home doses - improved * Bipolar -resume Abilify * Acute urinary retention - canela -started Flomax -difficult traumatic canela placement - trial DC canela today -canela must be out for PCM placement * Mediastinal LAD - f/u CT 3 months * Constipation - resolved -feels much better - better PO intake Subjective: Feels much better overall Objective: Vital Signs Temp Pulse Resp BP Pulse Ox 36.7 C 51 L 20 119/78 92 03/10/17 12:00 03/10/17 12:00 03/10/17 12:00 03/10/17 12:00 03/10/17 12:00 Laboratory Results 03/10/17 03:27 03/10/17 03:27 03/09/17 03/10/17 03/11/17 05:59 05:59 05:59 Intake Total 100 560 Output Total 800 1250 350 Balance -700 -1250 210 PT 17.3 SEC (12.0-15.0) H 03/10/17 11:17 INR 1.40 (0.83-1.16) H 03/10/17 11:17 d/w Dr. Snyder - PCM in am - canela must come out cardiac MRI - no sarcoid - Physical Exam Constitutional: no apparent distress, appears nourished, not in pain Cardiovascular: regular rate and rhythym, no murmur, rub, or gallop Respiratory: no respiratory distress, no rales or rhonchi, clear to auscultation Gastrointestinal: normoactive bowel sounds, soft, non-tender abdomen, no palpable masses Skin: no rashes or abrasions, no fluctuance, no induration Neurologic: AAOx3, sensation intact bilaterally Psychiatric: interacting appropriately, not anxious, not encephalopathic, thought process linear ICD10 Worksheet Patient Problems: Problems Problem Status Onset Complete heart block by electrocardiogram Acute Pneumonia Acute Pulmonary edema cardiac cause Acute
[2017-03-10] MEDS: guaiFENesin/CODEINE PHOS 10 ML UDCUP PO PRN (16:25)
[2017-03-10] MEDS: BENZONATATE 100 MG CAP PO PRN ×2 (17:32→21:31)
[2017-03-10 19:14] LABS: POTASSIUM 4.1 mEq/L (3.5-5.2)
[2017-03-10] MEDS: ALPRAZolam 1 MG TAB PO SCH (21:31)
[2017-03-10] MEDS: ARIPiprazole 10 MG TAB PO SCH (21:31)
[2017-03-11] MEDS: oxyCODONE IR 15 MG TAB PO PRN ×4 (04:35→20:58)
[2017-03-11] MEDS: BENZONATATE 100 MG CAP PO PRN ×4 (04:35→20:58)
[2017-03-11] MEDS: HEPARIN/DEXTROSE 500 ML IV SCH ×2 (04:36→19:47)
[2017-03-11] MEDS: TAMSULOSIN HCL 0.4 MG CAP PO SCH (09:01)
[2017-03-11] MEDS: ADDERALL 10 MG TAB PO SCH (09:01)
[2017-03-11] MEDS: ADDERALL 20 MG TAB PO SCH (09:01)
--- NOTE | 2017-03-11 09:35 | PDCARPN ---
Cardiology Progress Note Assessment/Plan: Assessment: 1. CHB: Intermittant CHB. Increased block with ambulation per Dr. Lenz note. Currently in CHB with rates in the 50-70's. Asymptomatic. 2. Bilateral PE: currently on Lovenox 3. Anemia: Hgb 9.8 and Hct 28.6. Down from 38 on admit. 4. Hx of bipolar and schitzophrenia. Well managed on Abilify. 5. Mental confusion: resolved today. He seems at his baseline. His mom notes he "seems like his normal self today" 6. Urinary retention: resolved. Caceres out yesterday. Able to urinate without issues. NOTE: Blood Cultures NGTD x 5 days Plan: -Continue Lovenox -Plan for pacemaker tomorrow -NPO after midnight 03/10/17 10:07 03/11/17 09:33 Subjective: Mr. Evans is feeling well this morning. No complaints. Caceres out yesterday. Urinating well. Tele demonsrates complete heart block with rates in the 50-70' s. K is 4.1 this morning. Reviewed/Discussed With: family, multidisciplinary team Objective: Vital Signs (8 Hrs) Temp Pulse Resp BP Pulse Ox 03/11/17 08:00 36.7 C 70 20 124/66 H 94 03/11/17 04:00 37.0 C 87 19 103/68 91 L Intake/Output (24 Hrs) 03/10/17 03/11/17 03/12/17 05:59 05:59 05:59 Intake Total 1792 Output Total 1250 1000 Balance -1250 792 Intake: Oral (ml) 1060 IV Intake (ml) 30 IV Infused (ml) 702 Heparin/Dextrose 500 ml @ 542 Per Protocol IV CONT [facility] Rx#:[id number] Magnesium Sulf 1 gm/ 105 Dextrose 100 ml @ 100 mls /hr IV ONCE ONE Rx#: [id number] cefTRIAXone 1 GM/DEXTROSE 55 50 ml @ 100 mls/hr IV DAILY [facility] Rx#:[id number] Output: Urine (ml) 1250 1000 Catheter 1250 300 Urinal 700 Other: Number of Voids Urinal 1 Result Diagrams: 03/10/17 03:27 03/10/17 17:56 - Physical Exam Cardiovascular: no murmurs, no rubs, no gallops Peripheral Pulses: 2+: carotid (R), carotid (L) Respiratory: clear to auscultate bilat Gastrointestinal: no tenderness Skin: no rashes Musculoskeletal: no muscular tenderness Neurologic: AAOx3, CN II-XII grossly intact Psychiatric: cooperative, interactive, following commands ICD10 Worksheet Patient Problems: Problems Problem Status Onset Complete heart block by electrocardiogram Acute Pneumonia Acute Pulmonary edema cardiac cause Acute
[2017-03-11 10:00] LABS: INTERPRETATION See Comments
[2017-03-11 14:57] LABS: ABSOLUTE NRBC COUNT 0.03 10^3/uL (0-0.01); ADD DIFF? YES; ADD MORPH? NO; ADD SCAN? NO; ATYPICAL LYMPHOCYTE FLAG 40 (0-99); FRAGMENT RBC FLAG 0 (0-99); HEMATOCRIT 38.8 % (40.0-51.0); HEMOGLOBIN 12.7 g/dL (13.7-17.5); LEFT SHIFT FLG 60 (0-99); LIPEMIA HEMOLYSIS FLAG 80 (0-99); MEAN CELL HEMOGLOBIN 32.8 pg (27.9-34.1); MEAN CELL HEMOGLOBIN CONCENTR. 32.7 g/dL (32.4-36.7); MEAN CELL VOLUME 100.3 fL (81.5-99.8); MEAN PLATELET VOLUME 10.1 fL (8.7-11.7); NRBC-AUTO% 0.4 % (0.0-0.2); PLATELET CLUMPS FLAG 0 (0-99); PLATELET COUNT 330 10^3/uL (150-400); RED BLOOD CELL COUNT 3.87 10^6/uL (4.40-6.38); RED CELL DISTRIBUTION WIDTH 13.1 % (11.5-15.2)
[2017-03-11 15:48] LABS: LYME DISEASE PCR COMMENT See Comments
[2017-03-11 15:49] LABS: MACROCYTES 1+; PLATELET ESTIMATE ADEQUATE (ADEQ); POLYCHROMASIA 1+
[2017-03-11 16:04] LABS: ANION GAP 17 mEq/L (8-16); CALCIUM 8.9 mg/dL (8.5-10.4); CARBON DIOXIDE 19 mEq/l (22-31); CHLORIDE 107 mEq/L (97-110); CREATININE 0.9 mg/dL (0.7-1.3); GLOMERULAR FILTRATION RATE > 60; GLUCOSE 109 mg/dL (70-100); POTASSIUM 4.9 mEq/L (3.5-5.2); SODIUM 143 mEq/L (134-144)
--- NOTE | 2017-03-11 16:24 | ASMTCMCOM ---
CM Note CM Note Notes: 03/11/2017 Case Management Note Met w/pt, and 4 y.o daughter. Pt pt pacemaker to happen tomorrow. Case Management d/c poc remains home with family support when medically stable with follow up as directed. Case Management available if needs change. Date Signed: 03/11/2017 04:24 PM Electronically Signed By:Milagros Webster RN
--- NOTE | 2017-03-11 19:04 | HOSPPROG ---
Hospitalist Progress Note Assessment/Plan: * Acute PE -IV heparin - hold in am for PCM placement -start oral agent after PCM * Possible PNA - more likely pulmonary infarct -continue empiric IV ceftriaxone * 3rd degree Heart block -cardiac MRI r/o sarcoid, lyme dz testing - all negative -PCM in am * Metabolic encephalopathy - due to benzo withdrawal -improved * Bipolar -resume Abilify * Acute urinary retention - canela -started Flomax -difficult traumatic canela placement -successful DC canela yesterday * Mediastinal LAD - f/u CT 3 months * Constipation - resolved -feels much better - better PO intake Subjective: Much better. Mental status back to baseline Objective: Vital Signs Temp Pulse Resp BP Pulse Ox 36.7 C 94 20 115/62 94 03/11/17 16:00 03/11/17 16:00 03/11/17 16:00 03/11/17 16:00 03/11/17 16:00 Laboratory Results 03/11/17 14:45 03/11/17 14:45 03/10/17 03/11/17 03/12/17 05:59 05:59 05:59 Intake Total 1792 1050 Output Total 1250 1000 Balance -2887 695 9654 PT 17.3 SEC (12.0-15.0) H 03/10/17 11:17 INR 1.40 (0.83-1.16) H 03/10/17 11:17 - Physical Exam Constitutional: no apparent distress, appears nourished, not in pain Cardiovascular: regular rate and rhythym, no murmur, rub, or gallop Respiratory: no respiratory distress, no rales or rhonchi, clear to auscultation Gastrointestinal: normoactive bowel sounds, soft, non-tender abdomen, no palpable masses Skin: no rashes or abrasions, no fluctuance, no induration Neurologic: AAOx3, sensation intact bilaterally Psychiatric: interacting appropriately, not anxious, not encephalopathic, thought process linear ICD10 Worksheet Patient Problems: Problems Problem Status Onset Complete heart block by electrocardiogram Acute Pneumonia Acute Pulmonary edema cardiac cause Acute
[2017-03-11] MEDS: ALPRAZolam 1 MG TAB PO SCH (20:52)
[2017-03-11] MEDS: ARIPiprazole 10 MG TAB PO SCH (20:52)
[2017-03-12] MEDS: guaiFENesin/CODEINE PHOS 10 ML UDCUP PO PRN (01:14)
[2017-03-12] MEDS: ALPRAZolam 0.25 MG TAB PO PRN (01:15)
[2017-03-12] MEDS: BENZONATATE 100 MG CAP PO PRN ×3 (05:57→22:43)
[2017-03-12] MEDS: oxyCODONE IR 15 MG TAB PO PRN ×2 (05:58→17:49)
[2017-03-12] MEDS ORDERED: diphenhydrAMINE 25 MG CAP PO ONE (07:52)
[2017-03-12] MEDS ORDERED: BACITRACIN IRRIGATION/NS 50,000 UNITS/1,000 ML BTL IRR ONE (07:52)
[2017-03-12] MEDS ORDERED: DIAZEPAM 5 MG TAB PO ONE (07:52)
[2017-03-12] MEDS ORDERED: ceFAZolin 2 GM/SWFI 2 GM/20 ML SYR IVP ONE (07:52)
[2017-03-12] MEDS ORDERED: NS 1,000 ML IV ONE (07:52)
--- NOTE | 2017-03-12 08:46 | CPEKG ---
Heart Rate: 53 RR Interval: 1132 P-R Interval: 328 QRSD Interval: 148 QT Interval: 536 QTC Interval: 504 P [place]: 10 QRS [place]: -1 T Wave [place]: 15 EKG Severity - ABNORMAL ECG - EKG Impression: SECOND-DEGREE HEART BLOCK, WITH 2-1 CONDUCTION. EKG Impression: FIRST DEGREE AV BLOCK EKG Impression: PROBABLE LEFT ATRIAL ABNORMALITY EKG Impression: RIGHT BUNDLE BRANCH BLOCK EKG Impression: COMPARED WITH 03/05/2017, SECOND-DEGREE HEART BLOCK NOW PRESENT Electronically Signed By: Laila Pacheco 12-Mar-2017 09:44:11
[2017-03-12] MEDS: HEPARIN/DEXTROSE 500 ML IV SCH (10:16)
[2017-03-12] MEDS: TAMSULOSIN HCL 0.4 MG CAP PO SCH (10:17)
[2017-03-12 11:26] LABS: ADD DIFF? YES; ADD MORPH? NO; ADD SCAN? NO; ATYPICAL LYMPHOCYTE FLAG 40 (0-99); FRAGMENT RBC FLAG 0 (0-99); HEMATOCRIT 36.1 % (40.0-51.0); HEMOGLOBIN 12.1 g/dL (13.7-17.5); LEFT SHIFT FLG 50 (0-99); LIPEMIA HEMOLYSIS FLAG 80 (0-99); MEAN CELL HEMOGLOBIN 33.3 pg (27.9-34.1); MEAN CELL HEMOGLOBIN CONCENTR. 33.5 g/dL (32.4-36.7); MEAN CELL VOLUME 99.4 fL (81.5-99.8); MEAN PLATELET VOLUME 9.8 fL (8.7-11.7); PLATELET CLUMPS FLAG 10 (0-99); PLATELET COUNT 320 10^3/uL (150-400); RED BLOOD CELL COUNT 3.63 10^6/uL (4.40-6.38); RED CELL DISTRIBUTION WIDTH 12.9 % (11.5-15.2)
[2017-03-12 11:34] LABS: INR 1.16 (0.83-1.16)
[2017-03-12 11:49] LABS: ANION GAP 12 mEq/L (8-16); CALCIUM 8.7 mg/dL (8.5-10.4); CARBON DIOXIDE 25 mEq/l (22-31); CHLORIDE 106 mEq/L (97-110); CREATININE 0.8 mg/dL (0.7-1.3); GLOMERULAR FILTRATION RATE > 60; GLUCOSE 81 mg/dL (70-100); POTASSIUM 4.5 mEq/L (3.5-5.2); SODIUM 143 mEq/L (134-144)
[2017-03-12 12:48] LABS: PLATELET ESTIMATE ADEQUATE (ADEQ); POLYCHROMASIA 1+
[2017-03-12] MEDS ORDERED: LIDOCAINE 1% 300 MG/30 ML SDV ONE (13:34)
[2017-03-12] MEDS ORDERED: fentaNYL 100 MCG/2 ML INJ ONE ×2 (13:34→14:14)
[2017-03-12] MEDS ORDERED: LIDO/EPI 1% **for epidural** 30 ML SDV ONE (13:35)
[2017-03-12] MEDS ORDERED: BUPIVACAINE 0.5% 30 ML SDV ONE (13:35)
[2017-03-12] MEDS ORDERED: MIDAZOLAM 2 MG/2 ML VIAL ONE (13:35)
--- NOTE | 2017-03-12 13:59 | PDANEPAE ---
ANE History of Present Illness av block ANE Past Medical History - Pulmonary History Hx Sleep Apnea: Yes - Endocrine History Hx Diabetes: No ANE Review of Systems Review of Systems: ANE Patient History - Allergies Allergies/Adverse Reactions: No Known Allergies Allergy (Unverified 03/04/17 18:08) - Home Medications Home Medications: ALPRAZolam [Xanax 1 MG (*)] 1 mg PO TID 03/04/17 [Last Taken 03/04/17] ARIPiprazole [Aripiprazole] 5 mg PO HS 03/04/17 [Last Taken 03/03/17] Amoxicillin/Clavulanate Pot [Augmentin 875 MG TAB (*)] 875 mg PO BID 03/04/17 [ Last Taken 03/04/17] Amphet Asp and D/Amphet [Adderall 10 MG (*)] 10 mg PO DAILY 03/04/17 [Last Taken 03/04/17] Dextroamphetamine/Amphetamine [Adderall 30 mg Tablet] 60 mg PO DAILY 03/04/17 [ Last Taken 03/04/17] oxyCODONE HCL [Oxycontin] 10 mg PO BID 03/04/17 [Last Taken 03/04/17] oxyCODONE IR [Oxycodone Ir (*)] 30 mg PO Q4H PRN 03/04/17 [Last Taken 03/04/17] traMADol [Ultram 50 mg (*)] 50 - 100 mg PO Q4 PRN 03/04/17 [Last Taken 03/03/17] - Smoking Hx Smoking Status: Never smoked - Alcohol Use Alcohol Use: Sober ANE Labs/Vital Signs - Labs Result Diagrams: 03/12/17 11:20 03/12/17 11:20 - Vital Signs Blood Pressure: 102/80 Heart Rate: 60 Respiratory Rate: 18 O2 Sat (%): 90 Height: 180.34 cm Weight: 82.7 kg ANE Physical Exam - Airway Neck exam: FROM Mallampati Score: Class 2 Mouth exam: normal dental/mouth exam - Pulmonary Pulmonary: no respiratory distress - Cardiovascular Cardiovascular: regular rate and rhythym - ASA Status ASA Status: II ANE Anesthesia Plan Anesthesia Plan: general endotracheal anesthesia
[2017-03-12] MEDS ORDERED: PROPOFOL 200 MG/20 ML VIAL ONE ×2 (14:14→14:19)
[2017-03-12] MEDS ORDERED: ROCURONIUM 50 MG/5 ML VIAL ONE (14:15)
[2017-03-12] MEDS ORDERED: NALOXONE HCL 0.4 MG/ML INJ IVP PRN (15:37)
[2017-03-12] MEDS ORDERED: fentaNYL 100 MCG/2 ML INJ IVP PRN (15:37)
--- NOTE | 2017-03-12 16:13 | POSTANESTH ---
Post Anesthetic Evaluation Cardiovascular Status: Similar to Pre-Op Cond Respiratory Status: Similar to Pre-op Cond. Level of Consciousness/Mental Status: Can Participate in Eval Pain Control: Adequate, Prn Tx Ordered Nausea/Vomiting Control: Adequate, Prn Tx Ordered Complications Possibly Related to Anesthesia: None Noted
--- NOTE | 2017-03-12 18:16 | HOSPPROG ---
Hospitalist Progress Note Assessment/Plan: Assessment: 41 yo M p/w acute pulmonary embolism c/b acute 3rd degree heart block Plan: # Acute PE. Likely contributing to tachycardia - restarted hep gtt w/o bolus s/p procedure, will d/w patient warfarin vs. DOAC in AM if no bleeding # Possible PNA. Acutely worsening hypoxia, new problem to this provider, further w/u indicated. Unclear if pulm infarct or overload w/ atelectasis - given that he is having device placed and potentially has infxn, tx w/ CTX x 5 days - repeat WBC in AM, get stat CXR now # Acute 3rd degree Heart block. D/w Dr. Lenz, he reports that the current sinus tachy is result of pacing conduction of atrial rhythm, initially had inappropriate los/normocardia w/ PE and heart block - patient feels symptomatically improved s/p PPM # Acute Metabolic encephalopathy. Evidenced by global brain dysfunction characterized as confusion, delayed cognition and reaction, all of which are an acute change from baseline, due to benzo withdrawal - resolving # Bipolar. Unclear type, cont home Rx # Acute urinary retention. S/p traumatic canela placement and initiation of flomax # Mediastinal LAD. Potentially 2/2 infxn, f/u CT 3 months # Constipation. Resolved Diet. Regular PPx. High risk, on hep gtt Code. Full Dispo. ADD 03/13, pending stabilization of above. Subjective: no chest pain Objective: Vital Signs Temp Pulse Resp BP Pulse Ox 36.7 C 111 H 16 108/76 96 03/12/17 18:02 03/12/17 18:02 03/12/17 18:02 03/12/17 18:02 03/12/17 18:02 Laboratory Results 03/12/17 11:20 03/12/17 11:20 03/11/17 03/12/17 03/13/17 05:59 05:59 05:59 Intake Total 1792 1550 Output Total 1000 Balance 792 1550 PT 15.0 SEC (12.0-15.0) 03/12/17 11:20 INR 1.16 (0.83-1.16) 03/12/17 11:20 - Pending Discharge Pending Discharge Within 24 Hours: Yes Pending Discharge Date: 03/13/17 Pending Discharge Time: 11:00 - Physical Exam Constitutional: no apparent distress, appears nourished, not in pain, No uncomfortable Cardiovascular: tachycardia, No systolic murmur, No irregularly irregular, No edema Respiratory: reduced air movement (bilat bases), inspiratory crackles (R mid ant seg), No expiratory wheeze, No bronchial breath sounds, No respiratory distress Gastrointestinal: normoactive bowel sounds, soft, non-tender abdomen, no palpable masses, No distension Psychiatric: not anxious, not encephalopathic, flat affect, No agitated ICD10 Worksheet Patient Problems: Problems Problem Status Onset Complete heart block by electrocardiogram Acute Pulmonary edema cardiac cause Acute Pneumonia Acute
[2017-03-12] MEDS ORDERED: FUROSEMIDE 20 MG/2 ML VIAL IVP ONE (18:17)
[2017-03-12] MEDS: ARIPiprazole 10 MG TAB PO SCH (22:41)
[2017-03-12] MEDS: ALPRAZolam 1 MG TAB PO SCH (22:41)
[2017-03-13] MEDS: guaiFENesin/CODEINE PHOS 10 ML UDCUP PO PRN (00:46)
[2017-03-13 01:16] LABS: ADD DIFF? YES; ADD MORPH? NO; ADD SCAN? NO; ATYPICAL LYMPHOCYTE FLAG 40 (0-99); FRAGMENT RBC FLAG 0 (0-99); HEMATOCRIT 32.6 % (40.0-51.0); HEMOGLOBIN 10.9 g/dL (13.7-17.5); LEFT SHIFT FLG 40 (0-99); LIPEMIA HEMOLYSIS FLAG 80 (0-99); MEAN CELL HEMOGLOBIN 33.9 pg (27.9-34.1); MEAN CELL HEMOGLOBIN CONCENTR. 33.4 g/dL (32.4-36.7); MEAN CELL VOLUME 101.2 fL (81.5-99.8); MEAN PLATELET VOLUME 9.9 fL (8.7-11.7); PLATELET CLUMPS FLAG 0 (0-99); PLATELET COUNT 388 10^3/uL (150-400); RED BLOOD CELL COUNT 3.22 10^6/uL (4.40-6.38); RED CELL DISTRIBUTION WIDTH 13.1 % (11.5-15.2)
[2017-03-13 02:07] LABS: MACROCYTES 1+; PLATELET ESTIMATE ADEQUATE (ADEQ); POLYCHROMASIA 1+
[2017-03-13] MEDS: HEPARIN/DEXTROSE 500 ML IV SCH (02:36)
[2017-03-13] MEDS: BENZONATATE 100 MG CAP PO PRN ×2 (05:18→14:01)
[2017-03-13] MEDS: oxyCODONE IR 15 MG TAB PO PRN ×4 (05:43→18:06)
[2017-03-13 08:09] LABS: ANION GAP 10 mEq/L (8-16); CALCIUM 8.2 mg/dL (8.5-10.4); CARBON DIOXIDE 26 mEq/l (22-31); CHLORIDE 104 mEq/L (97-110); CREATININE 0.8 mg/dL (0.7-1.3); GLOMERULAR FILTRATION RATE > 60; GLUCOSE 114 mg/dL (70-100); SODIUM 140 mEq/L (134-144)
--- NOTE | 2017-03-13 08:26 | CPEKG ---
Heart Rate: 110 RR Interval: 545 P-R Interval: 244 QRSD Interval: 138 QT Interval: 456 QTC Interval: 618 P [place]: 0 QRS [place]: -60 T Wave [place]: 32 EKG Severity - ABNORMAL ECG - EKG Impression: VENTRICULAR-PACED RHYTHM EKG Impression: COMPARED WITH 03/12/2017, V PACING NOW PRESENT Electronically Signed By: Laila Pacheco 13-Mar-2017 17:11:21
[2017-03-13] MEDS: TAMSULOSIN HCL 0.4 MG CAP PO SCH (08:49)
--- NOTE | 2017-03-13 12:30 | PDCARPN ---
Cardiology Progress Note Assessment/Plan: Assessment: 1. CHB: Intermittant CHB. Status post dual-chamber pacemaker implantation 03/12 2. Bilateral PE: currently on Lovenox 3. Anemia: Hgb 9.8 and Hct 28.6. Down from 38 on admit. 4. Hx of bipolar and schitzophrenia. Well managed on Abilify. 5. Mental confusion: Resolved 6. Urinary retention: resolved. Caceres out since Friday. Able to urinate without issues. NOTE: Blood Cultures NGTD x 5 days Plan: -patient is stable to go home from cardiac perspective -Will require postop wound check and pacer interrogation at [facility] office in 1 week -oral anticoagulation with novel anticoagulant for at least 6 months -post pacemaker instructions have been reviewed with patient and family. Subjective: Alexandro is doing well today. He underwent pacemaker implant yesterday without complication. Device check demonstrates normal device function. Chest x-ray demonstrates no evidence of pneumothorax. Surgical site without hematoma ecchymosis. Reviewed/Discussed With: family, multidisciplinary team Time Spent With Patient: 20 minutes Objective: Vital Signs (8 Hrs) Temp Pulse Resp BP Pulse Ox 03/13/17 08:00 36.9 C 111 H 28 H 93/69 L 91 L Intake/Output (24 Hrs) 03/12/17 03/13/17 03/14/17 05:59 05:59 05:59 Intake Total 1550 2077 Output Total 1350 Balance 1550 727 Intake: Oral (ml) 1200 1050 IV Infused (ml) 350 1027 Heparin/Dextrose 500 ml @ 300 927 Per Protocol IV CONT [facility] Rx#:[id number] cefTRIAXone 1 GM/DEXTROSE 50 100 50 ml @ 100 mls/hr IV DAILY [facility] Rx#:[id number] Output: Urine (ml) 1350 Toilet 1000 Urinal 350 Other: Weight 82.7 kg Intake Quantity Yes Sufficient Number of Voids Toilet 2 2 Result Diagrams: 03/13/17 01:10 03/13/17 07:25 - Physical Exam Constitutional: WDWN Ears, Nose, Mouth, Throat: moist mucous membranes Cardiovascular: regular rate and rhythm, no murmurs, no rubs, no gallops, other (Pacer site without hematoma or ecchymosis.) Respiratory: clear to auscultate bilat Neurologic: AAOx3, CN II-XII grossly intact Psychiatric: cooperative ICD10 Worksheet Patient Problems: Problems Problem Status Onset Complete heart block by electrocardiogram Acute Pneumonia Acute Pulmonary edema cardiac cause Acute
[2017-03-13] MEDS: DABIGATRAN ETEXILATE MESYL 150 MG CAP PO SCH ×2 (13:06→18:42)
--- NOTE | 2017-03-13 13:10 | PDHOMEO2F ---
Home Oxygen Face to Face Home Orders: I certify that a physician or a nurse practitioner or physician's promotional advertising assistant has had a [id number] encounter with this patient on the date of this order due to the diagnosis listed, which relates to the primary reason the patient requires home oxygen. Alternative treatments have been tried, or considered, and deemed ineffective. It is anticipated that supplemental oxygen will result in improvement with treatment. Home oxygen qualifying diagnosis: Acute pulmonary Embolism with Pulm Infarct Home oxygen secondary diagnosis: Acute hypoxic respiratory failure SpO2 on room air (%): 84 Frequency of home oxygen needed: continuous Home oxygen liters per minute: 3 Home oxygen delivery device: nasal cannula Concentrator: Yes E-tanks for mobility and back up: Yes If ordering portable O2, is the patient mobile in the home?: Yes I certify that, based on these findings, the home oxygen is medically necessary for this patient for the following length of time. Length of time home oxygen needed: 1 month
[2017-03-13 13:35] VITALS: RESP 20; TEMP 97.9
--- NOTE | 2017-03-13 13:45 | ASMTCMCOM ---
CM Note CM Note Notes: CM met w/ pt and family for dispo planning. OT is recommending home w/ 24hr supervision. PT is recommending home independent. RT will set pt up w/ o2. Pt does not report having any needs at this time and having a supportive family. CM available for changes. Plan: Independent Date Signed: 03/13/2017 01:44 PM Electronically Signed By:ADELINA Conner
--- NOTE | 2017-03-13 15:19 | PDDCSUM ---
Discharge Summary Discharge Summary: DISCHARGE SUMMARY FOLLOW-UP ITEMS: Determine duration of systemic anticoagulation Outpatient pacemaker checked DATE OF ADMISSION: 03/04/2017 DATE OF DISCHARGE: 03/13/2017 DISCHARGE DIAGNOSES: 1. Acute idiopathic bilateral pulmonary emboli present on admission 2. Possible right lower lobe pneumonia 3. Third-degree complete heart block 4. Acute metabolic encephalopathy 5. Acute urinary retention 6. Chronic pain with continuous opiate and benzodiazepine dependency 7. Bipolar disease, unclear type 8. Mediastinal lymphadenopathy 9. Acute hypoxic respiratory failure 10. Acute atelectasis CONSULTATIONS: Pulmonary by Dr. Joo Murillo, cardiology by Dr. Jaspal Lenz PROCEDURES / IMAGING: Permanent pacemaker placed on March 12 CHIEF COMPLAINT: Acute back pain SUBJECTIVE: Patient is feeling well at time discharge, he is requesting to be discharged from the hospital, he is ambulating safely in the hallways, his pain is well managed with oral pain medications PHYSICAL EXAM ON DISCHARGE: Systolic blood pressure 110, heart rate 80-100, afebrile overnight, satting well on 3 L nasal cannula, alert awake oriented x3, no evidence of tachypnea, heart rhythm is regular, no lower extremity edema LABS ON DISCHARGE: Creatinine 0.8, white blood count 8500, hemoglobin 10.9, potassium 4 HOSPITAL COURSE BY PROBLEM: 1. Acute pulmonary embolism present on admission. Idiopathic, bilateral, moderate to large clot burden, no evidence of right heart strain on echo, contributing to patient's tachycardia and likely back pain on presentation. Lower extremity ultrasounds demonstrating no DVT, no other clear precipitant. Patient was placed on heparin drip given that he also required pacemaker placement for his concomitant third-degree heart block. After experiencing no bleeding postprocedure early, the patient is being adjusted to oral anticoagulants. The patient has decided on Pradaxa, and he will follow up with Dr. Joo Murillo in the outpatient setting. The exact duration of his anticoagulation is to be determined. 2. Possible pneumonia. On presentation, the patient had a right lower lobe infiltrate which persisted on chest x-ray throughout his hospitalization. Is unclear whether this was secondary to a pulmonary infarct, volume overload, or an actual bacterial pneumonia. That being said, given patient's risk of infecting his device, it is determined that he should receive a total of 5 days of ceftriaxone, and he will receive 3 subsequent days of Augmentin following his discharge. 3. Acute 3rd degree heart block. On presentation, the patient had evidence of third-degree heart block, he was symptomatic of this, given that his baseline heart rate is around 100, and his heart rate was in the 40-60 range. The patient was seen by electrophysiology, and permanent pacemaker was placed on March 12. Following his procedure, the patient was conducting his atrial rhythm, which is around 100-110 beats per minute. I suspect that this rate is driven partially by his pulmonary embolism as well as his underlying mental health medications, including Adderall. He will follow up with Dr. Jaspal Lenz in the outpatient setting. 4. Acute hypoxic respiratory failure. Evidenced by an SpO2 of 74% on room air with objective tachypnea and respiratory rate consistently between 25 and 30, with symptomatic shortness of breath, labored breathing, all of which was secondary to his moderate to high volume bilateral pulmonary emboli. The patient required up to 6 L high-flow oxygen, and his respiratory status stabilized by time of discharge. He requires 3 L nasal cannula oxygen at time of discharge and his needs will be followed up by Dr. Joo Murillo after discharge. Although this diagnosis was not clearly a described throughout this hospitalization, this was an active diagnosis which was treated throughout the course of hospitalization and should be included as a major contributing condition during this hospitalization. 5. Acute metabolic encephalopathy. Evidenced by global brain dysfunction characterized as confusion, delayed cognition and reaction, all of which are an acute change in his baseline, secondary to benzodiazepine withdrawal, resolved during this hospitalization. 6. Acute atelectasis. The patient had some acute atelectasis secondary to some pleural effusions and chest pain from pulmonary emboli, incentive spirometer was encouraged. 7. Acute urinary tension. This is status post traumatic Caceres catheter placement, he did receive a trial void successfully, and will be discharged on Flomax. 8. Mediastinal lymphadenopathy. This is potentially secondary to infection, he should have an outpatient CT performed in [address] Murillo. 9. Chronic pain with continuous opiate and benzodiazepine dependency. Patient had ongoing pain during this hospitalization, he was continued on his home dosages of OxyContin, oxycodone, Ultram, Xanax, these will be continued at discharge, although the patient will need to receive the scripts for his sustained release medications from his primary prescriber, provide him with a limited supply of oxycodone immediate release as well as Ultram given the potential acute nature of his pain from his pulmonary embolism. 10. Bipolar disease. Unclear type, the patient's home medications most likely do play a part in his tachycardia, he has been continued on these and should receive scripts for these through his primary prescribing provider. DISCHARGE MEDICATIONS: Please see official discharge medication reconciliation sheet in chart , continue home medications with the addition Pradaxa 150 mg twice daily, Flomax 0.4 mg daily. DISCHARGE INSTRUCTIONS: The patient was educated regarding the signs and symptoms of bleeding, encouraged her seek medical attention immediately if he experiences any signs or symptoms of bleeding, and he should follow up with Dr. Joo Murillo in 2 weeks. TIME SPENT: Greater than 30 minutes were spent on direct patient care, as well as discharge planning and preparation.
[2017-03-13 17:27] VITALS: BP 100/64; PULSE 96; O2SAT 94
--- NOTE | 2017-03-14 09:01 | EPPROC ---
Electrophysiology Procedure Note: PROCEDURE PERFORMED: Implantation of an A/V Pacemaker Fluoroscopy INDICATION: This is a 41 yr old with complete heart block and symptoms of extreme degree of fatigue. No underlying cause was elicited through the hospital stay and hence it was decided to implant a dual chamber pacemaker. PROCEDURE NOTE: Patient presented to the cardiac catheterization laboratory in a fasting, post absorptive state. Cardiac freezer laboratory technician nurse administered moderate sedation. The left infraclavicular area was prepped and draped in the usual sterile fashion. Lidocaine plus bupivacaine was used for local anesthesia. Left subclavian venography was performed by injection of iodinated contrast into the left antecubital vein. This was done to assure patency of the vein and also to assess for any anatomical aberrations. Using a combination of blunt and sharp dissection and electrocautery, the dissection was carried down to the prepectoral fascia. All bleeding was controlled with electrocautery. Fluoroscopy was utilized during the entire procedure for venous access and placement of the leads. Using the usual technique, left cephalic vein was accessed and a glidewire was placed. Through this initially a 9F and later a 7F sheath was passed. Placement of the guidewires into the venous system was confirmed by low- pressure blood return and also by visualizing the guidewires advancing into the inferior vena cava. A purse string suture was applied around the guidewires. An active fixation ventricular lead was advanced into the right ventricular apex and screwed in place. An active fixation atrial lead was advanced into the right atrial appendage and screwed in place. The peel away sheaths were removed. Pacing thresholds, sensing parameters and lead impedances were measured. There was no diaphragmatic stimulation at maximum output. The leads were sutured to the prepectoral fascia with 3 nonabsorbable sutures each. The pocket was created and it was flushed using antibiotic solution. It was inspected for any bleeding. The leads were attached to the pacemaker securely. The pacemaker was inserted into the pocket and secured in place with a nonabsorbable suture. Fluoroscopy was performed in [place] and [place] planes to verify right-sided placement of the leads. Also fluoroscopy of the pacemaker pocket was performed. The pacemaker pocket was closed in 3 layers with absorbable vicryl sutures. Steristrips were placed. Appropriate dressing was applied. The patient left the cardiac catheterization laboratory in stable condition. Serial Numbers: Device: [employer] Edora 8 [address] GUILLEN [id number] Atrial Lead: [employer] Solia S45 SN [id number] Ventricular Lead: [employer] Solia S53 SN [id number] Stimulation Thresholds & Impedance Measurements: Atrial Lead 3.9mV, 0.4@0.4ms, 507Ohms Ventricular Lead 9.8mV, 0.4@0.4ms, 643Ohms Sunny Pacing Parameters Pacing mode: DDD CLS Lower rate: 50 Upper tracking rate: 130 Upper sensor rate: 130 Patient Problems: Problems Problem Status Onset Complete heart block by electrocardiogram Acute Pneumonia Acute Pulmonary edema cardiac cause Acute
== END 2017-03-13 18:55 | disposition home or self-care (01) | DRG 175 ==
LOC: CED 17:57 → OBSVTOIN 18:29 → CEDHOLD 18:29 → F2N 21:45 → F2W 03-08 11:50
PROVIDERS: ADMIT Internal Medicine; ATTEND Internal Medicine
PROC: 02HV33Z Insertion of Infusion Device into Superior Vena Cava, Percutaneous Approach (ICD-10-PCS; 2017-03-06)
PROC: 02H63JZ Insertion of Pacemaker Lead into Right Atrium, Percutaneous Approach (ICD-10-PCS; principal; 2017-03-12)
PROC: 0JH606Z Insertion of Pacemaker, Dual Chamber into Chest Subcutaneous Tissue and Fascia, Open Approach (ICD-10-PCS; principal; 2017-03-12)
PROC: 02HK3JZ Insertion of Pacemaker Lead into Right Ventricle, Percutaneous Approach (ICD-10-PCS; principal; 2017-03-12)
DX: I26.99 Other pulmonary embolism without acute cor pulmonale (principal); R91.8 Other nonspecific abnormal finding of lung field; J96.01 Acute respiratory failure with hypoxia; I44.2 Atrioventricular block, complete; R33.9 Retention of urine, unspecified; E86.0 Dehydration; N17.9 Acute kidney failure, unspecified; E87.2 Acidosis; F13.231 Sedative, hypnotic or anxiolytic dependence with withdrawal delirium; G89.29 Other chronic pain; R59.0 Localized enlarged lymph nodes; F41.9 Anxiety disorder, unspecified; F31.9 Bipolar disorder, unspecified; F90.9 Attention-deficit hyperactivity disorder, unspecified type
CPT/HCPCS: 71010-PO; 80048-PO; 81003-PO; 81015-PO; 83605-PO; 84484-PO; 85025-PO; 85300-90; 85303-90; 85306-90; 85378-PO; 85520-90; 85610-PO; 85730-PO; 86147-90; 97116-GP; 97161-GP; 97165-GO; 97530-GO; 97530-GP; 97535-GO; A9585; C1751; C1769; C1785; C1898; J0456; J0690; J0696; J1644; J1650; J1885; J1940; J2060; J2250; J2704; J3010; J3475; Q9967